=== PATIENT | female | born 1960 ===

== ENCOUNTER 2022-12-24 13:11 | Inpatient (IN) | payer MEDICAID, SELFPAY ==
[2022-12-24] VITALS (12 sets, daily range): BP systolic 105–149; BP diastolic 62–95; PULSE 68–107; RESP 16–28; TEMP 36.6–38.5; O2SAT 86–100; BMI 31.8
--- NOTE | ~2022-12-24 | CT_ITS ---
EXAMINATION: CT HEAD WITHOUT CONTRAST CLINICAL INFORMATION: Somnolent, rule out intracranial abnormality. COMPARISON: None available. TECHNIQUE: Contiguous axial imaging was performed from the skull base to vertex without intravenous administration of contrast. Coronal and sagittal reformatted images were obtained. This CT examination was performed using dose optimization techniques as appropriate, variously including the following: *Automated exposure control *Adjustment of mA and/or kV according to patient size (this includes techniques or standardized protocols for targeted exams where dose is matched to indication/reason for exam; i.e. extremities or head) *Use of iterative reconstruction technique DLP: 679 mGy-cm FINDINGS: There is mild widening of the cortical sulci and associated ventriculomegaly. Minimal periventricular microvascular changes are seen. The lateral ventricles are symmetrical. The third and fourth ventricles are in their normal midline position. The basilar and prepontine cisterns are unremarkable. There is no acute intra or extracerebral abnormality. There is no mass effect or midline shift. Sections through the bony calvarium are unremarkable. The orbits are intact. The paranasal sinuses are clear. The mastoid air cells are clear. There is mild to moderate anterior nasal septal deviation to the right. CT/CT head/brain wo IV con IMPRESSION: No acute intracranial pathology.
--- NOTE | ~2022-12-24 | CT_ITS ---
EXAMINATION: CT ANGIOGRAM OF THE CHEST WITH AND WITHOUT CONTRAST (CT PULMONARY ANGIOGRAM FOR PE) CLINICAL INFORMATION: Reason for Exam hypoxic, r/o PE COMPARISON: Chest radiograph earlier today and chest radiograph 10/25/2010 (report only). TECHNIQUE: Prior to contrast administration, noncontrast localization images were obtained. Subsequently, multidetector volumetric imaging was performed from the thoracic inlet to below the diaphragms following the administration of 65 mL Omnipaque 350 intravenous contrast. No contrast reaction reported Sagittal, coronal, and MIP oblique sagittal reformatted images were obtained on the CT workstation, uploaded to PACS, and reviewed. This CT examination was performed using dose optimization techniques as appropriate, variously including the following: *Automated exposure control *Adjustment of mA and/or kV according to patient size (this includes techniques or standardized protocols for targeted exams where dose is matched to indication/reason for exam; i.e. extremities or head) *Use of iterative reconstruction technique Total exam dose-length product 259 mGy-cm FINDINGS: QUALITY OF STUDY/CONTRAST BOLUS: Suboptimal. There is marked motion artifact present impeding evaluation PULMONARY ARTERIES: No large central or large segmental emboli are seen. There is extremely limited by marked motion artifact. THORACIC AORTA: No aneurysm. LUNG: Bibasilar atelectasis is present. Calcified granulomas seen at the right lung base. PLEURA: No pleural effusion or pneumothorax. MEDIASTINUM: Mild cardiac enlargement.. No pericardial effusion. No hilar or mediastinal lymphadenopathy. No evidence of septal bowing or right heart strain. CORONARY ARTERY CALCIFICATION: None visualized on this study. CHEST WALL/AXILLA: No axillary or internal mammary lymphadenopathy. OSSEOUS STRUCTURES: There is a compression fracture involving the T8 vertebral body with about 50% collapse. There is mild compression involving the superior endplate of T6 vertebral body. UPPER ABDOMEN: Hepatic steatosis is suspected. A water density cyst in the left upper quadrant is partially included which I suspect is related to the upper pole the left kidney. No reflux of contrast into the hepatic veins to suggest elevated right heart pressures. CT/CT angio chest PE protocol IMPRESSION: 1. No evidence of pulmonary emboli, but this study is extremely limited. 2. Compression fractures T6 and T8. VTE: Negative but limited
--- NOTE | ~2022-12-24 | XR_ITS ---
EXAMINATION: XR CHEST CLINICAL INFORMATION: Septic COMPARISON: None TECHNIQUE: Portable AP upright view of the chest was obtained. FINDINGS: EKG leads project over the chest. Lung volumes are low. There is prominence of the interstitial markings. No focal consolidation, interstitial pulmonary edema or pneumothorax. No pleural effusion. No significant abnormality is noted involving the heart, mediastinum, bony thorax or soft tissues. XR/XR chest 1V IMPRESSION: No pneumonia.
--- NOTE | ~2022-12-24 | XR_ITS ---
EXAMINATION: XR CHEST CLINICAL INFORMATION: Hypoxia COMPARISON: Previous day TECHNIQUE: Frontal view of the chest was obtained. FINDINGS: Diffuse bronchial wall thickening redemonstrated. Bibasilar subsegmental atelectasis. No discrete consolidation. Stable cardiomediastinal silhouette. No pleural effusion or pneumothorax. XR/XR chest 1V IMPRESSION: * Stable diffuse bronchial wall thickening. * No discrete consolidation.
[2022-12-24] MEDS: 0.9 % Sodium Chloride 2,000 ML 999 ML IVCONT ×2 (13:20→14:55)
--- NOTE | 2022-12-24 13:29 | ECG_ITS ---
Test Reason : AMS Blood Pressure : / mmHG Vent. Rate : 089 BPM Atrial Rate : 089 BPM P-R Int : 152 ms QRS Dur : 096 ms QT Int : 358 ms P-R-T Axes : 042 011 200 degrees QTc Int : 435 ms Normal sinus rhythm ST & T wave abnormality, consider inferior ischemia ST & T wave abnormality, consider anterolateral ischemia Abnormal ECG No previous ECGs available Referred By: Krissy Sousa Electronically Signed By:STEVIE SO MD
[2022-12-24 13:50] LABS: MANUAL DIFF FLAG NO
[2022-12-24 13:51] LABS: Basophils Percent Auto 0.5 % (0-2); Eosinophils Percent Auto 0.6 % (0-4); Hematocrit 54.2 % (37.0-47.0); Hemoglobin 16.7 g/dl (12.0-16.0); Imm Gran Abs Auto 0.03 X10*3/uL (0.00-0.03); Imm Gran Pct Auto 0.5 % (0.0-0.4); Lymphocytes Absolute Auto 2.3 X10*3/uL (1.2-4.9); Mean Corpuscular HGB Conc 30.8 g/dl (31.0-35.0); Mean Corpuscular Hemoglobin 28.9 pg (27.0-33.0); Mean Corpuscular Volume 93.8 fL (80.0-98.0); Mean Platelet Volume 10.2 fL (9.4-12.3); Monocytes Absolute Auto 0.8 X10*3/uL (0.1-1.2); Monocytes Percent Auto 11.8 % (2-11); Neutrophils Absolute Auto 3.2 x10*3/uL (2.0-8.3); Neutrophils Percent Auto 50.6 % (45-73); Platelet Count 298 X10*3/uL (160-400); Red Blood Count 5.78 X10*6/uL (4.20-5.50); Red Cell Distribution Width 13.9 % (11.0-16.0); White Blood Count 6.4 X10*3/uL (4.8-10.8)
[2022-12-24 13:53] LABS: Venous Blood Gas Refer to POC result
[2022-12-24 13:53] LABS: VBG Base Excess 6.8 mmol/L; VBG HCO3 29 mmol/L (22-26); VBG pCO2 34 mmHg; VBG pH 7.53 (7.32-7.43); VBG pO2 61 mmHg
[2022-12-24 14:00] LABS: Lactic Acid 1.5 mmol/L (0.5-2.0)
[2022-12-24 14:07] LABS: Alanine Aminotransferase 20 U/L (0-31); Albumin Level 3.9 g/dL (3.5-5.0); Alkaline Phosphatase 121 U/L (39-117); Anion Gap 17 (12-20); Aspartate Amino Transferase 27 U/L (5-31); Bilirubin Direct 0.1 mg/dL (0.0-0.5); Bilirubin Total 0.3 mg/dL (0.0-1.0); Blood Urea Nitrogen 35 mg/dL (9-16); Calcium 9.6 mg/dL (8.4-10.2); Carbon Dioxide 24 mmol/L (22-29); Chloride 115 mmol/L (96-108); Creatinine Clr Calc Pharmacy 72.7; Estimated Glomerular Filt Rate > 60; Glucose Random 124 mg/dL (60-115); Magnesium 2.6 mg/dL (1.6-2.6); Potassium 3.6 mmol/L (3.3-5.1); Sodium 152 mmol/L (135-145); Total Protein 7.3 g/dL (6.5-8.0)
[2022-12-24] MEDS: levoFLOXacin/D5W 500 MG/100 ML PIGGYBACK 100 MG IV (14:11)
--- NOTE | 2022-12-24 14:17 | PHA.MEDREC ---
Pharmacy Consult ? Medication Reconciliation Pharmacy has completed the medication reconciliation. List from [facility]
[2022-12-24 14:27] LABS: INTERNATIONAL NORM RATIO 1.7 (0.9-1.1); Prothrombin Time 20.1 SEC (10.0-13.1)
[2022-12-24 14:31] LABS: COVID-19 Test Negative (Negative); IDNOW Serial# 08D9AD1C
[2022-12-24 14:37] LABS: B Type Natriuretic Peptide 24 pg/mL (<100)
[2022-12-24 14:39] LABS: Troponin-I High Sensitivity < 2.7 ng/L (<3.5-17.0)
[2022-12-24] MEDS: Acetaminophen Supp 650 MG SUPP.RECT PR (14:53)
[2022-12-24 14:54] LABS: TSH reflex Free T4 1.12 uIU/mL (0.32-4.0)
--- NOTE | 2022-12-24 14:55 | ED_ITS ---
HPI - Recheck/Abnormal Lab/Rx General Chief Complaint: Recheck/Abnormal Lab/Rx Stated Complaint: ABNORMAL LABS PER EMS Time Seen by Provider: 12/24/22 13:22 Source: EMS Mode of arrival: EMS Limitations: altered mental status History of Present Illness HPI narrative: Patient comes in the emergency room via ambulance from [facility]. They reported that the patient had low sodium, low potassium, has been weaker than usual. Per EMS, they were told by the staff the patient at baseline is not all that responsive . When EMS arrived to the facility, patient's oxygen saturation was 86%. Patient is unable to provide any history Related Data Home Medications Medication Instructions Recorded Confirmed cholecalciferol (vitamin D3) 1,250 1,250 mcg PO QMONTH 12/24/22 12/24/22 mcg (50,000 unit) tablet divalproex 500 mg tablet,extended 1,500 mg PO BEDTIME 12/24/22 12/24/22 release 24 hr (Depakote ER) divalproex 500 mg tablet,extended 500 mg PO BID@0900,1400 12/24/22 12/24/22 release 24 hr (Depakote ER) famotidine 20 mg tablet 20 mg PO BID 12/24/22 12/24/22 gemfibrozil 600 mg tablet 600 mg PO BID 12/24/22 12/24/22 levothyroxine 75 mcg tablet 75 mcg PO DAILY 12/24/22 12/24/22 lorazepam 0.5 mg tablet 0.5 mg PO BID 12/24/22 12/24/22 olanzapine 15 mg tablet 15 mg PO BEDTIME 12/24/22 12/24/22 olanzapine 5 mg tablet 5 mg PO DAILY 12/24/22 12/24/22 potassium chloride 20 mEq 20 meq PO DAILY 12/24/22 12/24/22 tablet,extended release ramelteon 8 mg tablet 8 mg PO BEDTIME 12/24/22 12/24/22 simvastatin 40 mg tablet 40 mg PO BEDTIME 12/24/22 12/24/22 white petrolatum-mineral oil 83 1 appl ophthalmic (eye) BID 12/24/22 12/24/22 %-15 % eye ointment (Artificial Eye Lubricant) Allergies Allergy/AdvReac Type Severity Reaction Status Date / Time Penicillins [PENICILLINS] Allergy Intermediate RASH/VOMITI Verified 12/24/22 13:32 NG clindamycin [CLINDAMYCIN] Allergy Mild VOMIT Verified 12/24/22 13:32 aspirin [ASPIRIN] Allergy Unknown SENSITIVE Verified 12/24/22 13:32 STOMACH ibuprofen [IBUPROFEN] Allergy Unknown VOMITING Verified 12/24/22 13:32 Sulfa (Sulfonamide Allergy Unknown UNKNOWN Verified 12/24/22 13:32 Antibiotics) [SULFA (SULFONAMIDE ANTIBIOTICS)] sulfamethoxazole Allergy Unknown NAUSEA & Unverified 03/30/20 17:29 [From BACTRIM] VOMITING trimethoprim [From BACTRIM] Allergy Unknown NAUSEA & Unverified 03/30/20 17:29 VOMITING carisoprodol [From SOMA] AdvReac Unknown NAUSEA & Unverified 03/30/20 17:29 VOMITING erythromycin base AdvReac Unknown NAUSEA & Unverified 03/30/20 17:29 [ERYTHROMYCIN BASE] VOMITING morphine [MORPHINE] AdvReac Unknown CHEST PAIN Unverified 03/30/20 17:29 AND CRAMPS From DEMEROL Allergy Unknown NAUSEA/VOMI Uncoded 03/30/20 17:29 TING From PERCOCET Allergy Unknown VOMITTING Uncoded 03/30/20 17:29 Review of Systems Review of Systems: Yes Unobtainable due to mental condition [facility] Past Medical History Medical History (Updated 12/24/22 @ 21:13 by Krissy Sousa MD) Bipolar disorder Chronic anemia Delusional disorder GERD (gastroesophageal reflux disease) Hyperlipidemia Hypertension Hypothyroidism Social History Social History Alcohol intake: unknown Smoked in Last 30 Days: No Use of substances other than those prescribed or required for medical reasons: Unknown Advance Directives: No Patient : No Physical Exam Vital Signs: Vital Signs: Last Vital Signs Temp 98.2 F 12/24/22 19:54 Pulse 68 12/24/22 19:54 Resp 16 12/24/22 19:54 BP 110/68 12/24/22 19:54 Pulse Ox 95 12/24/22 19:54 O2 Del Method High Flow Nasal C annula 12/24/22 19:54 O2 Flow Rate 4 12/24/22 19:54 BMI result Body Mass Index 31.8 Const: Other: Appearance: Somnolent, easily arousable, falls back asleep Eyes: Pupils equal, round and reactive to light. ENT: Pharynx normal. Dry mucous membranes Neck: Normal inspection. Neck supple. No lymph nodes noted. No crepitus CVS: Normal heart rate and rhythm. Pulses normal. Normal S1 and S2 Respiratory: No respiratory distress. Breath sounds normal. No Wheezing. No rales oxygen saturation 88% on room air Abdomen: Soft and nontender. No rigidity. No distention. Skin: Skin warm and dry. Normal skin color. Normal skin turgor. Extremities: No lower extremity edema. No Lacerations. No Rash Neuro: Lethargic, cannot participate in cranial nerve assessment Psych: Lethargic Medications Administered Discontinued Medications Generic Name Dose Route Start Last Admin Trade Name Freq PRN Reason Stop Dose Admin Acetaminophen 650 mg 12/24/22 14:43 12/24/22 14:53 Acetaminophen Supp 650 Mg Supp.Rect HI 12/24/22 14:44 650 mg ONCE ONE Administration Sodium Chloride 2,000 mls @ 999 mls/hr 12/24/22 13:29 12/24/22 15:16 Ns IVCONT 12/24/22 15:29 Infused .Q2H1M ONE Infusion Sodium Chloride 2,000 mls @ 999 mls/hr 12/24/22 13:30 12/24/22 16:10 Ns IVCONT 12/24/22 15:30 Infused .Q2H1M ONE Infusion Levofloxacin 500 mg in 100 mls @ 100 mls/hr 12/24/22 13:46 12/24/22 15:17 Levaquin IV 12/24/22 14:45 Infused ONCE ONE Infusion Iohexol 65 ml 12/24/22 17:13 12/24/22 17:13 Iohexol 350 Mg/Ml 100 Ml Infus..Btl IV 12/24/22 17:14 65 ml ONCE ONE Administration Iohexol 100 ml 12/24/22 17:16 12/24/22 17:17 Iohexol 350 Mg/Ml 100 Ml Infus..Btl IV 12/24/22 17:17 65 ml ONCE ONE Administration Medical Decision Making Medical Decision Making [facility] Narrative: -on arrival, patient was noted to be altered, tachypneic, oxygen saturation 88% on room air, fever. Patient was given 2 L of normal saline, based on ideal body weight of 55 kg, patient is obese. Patient was also started on Levaquin. Patient has an extensive list of allergies -all of patient's labs and imaging pending -chest x-ray does not show acute pneumonia and white blood cell count is within normal limits. Patient is hypoxic, we will go ahead and order a CT scan to rule out pulmonary embolism. -CT scan for pulmonary embolism is negative. -patient being treated for UTI -discussed the patient with Dr. Watkins, patient being admitted Admission/Observation Consideration of admission/observation: Escalation of care including admission/observation considered Consult Healthcare Provider Management of the patient was discussed with: Hospitalist Lab Data [facility] Lab Attestation statement: I reviewed the patient's lab results. 12/24/22 13:44 12/24/22 13:44 Labs: Lab Results 12/24/22 12/24/22 12/24/22 Range/Units 13:43 13:44 13:44 WBC 6.4 (4.8-10.8) X10*3/uL RBC 5.78 H (4.20-5.50) X10*6/uL Hgb 16.7 H (12.0-16.0) g/dl Hct 54.2 H (37.0-47.0) % MCV 93.8 (80.0-98.0) fL MCH 28.9 (27.0-33.0) pg MCHC 30.8 L (31.0-35.0) g/dl RDW 13.9 (11.0-16.0) % Plt Count 298 (160-400) X10*3/uL MPV 10.2 (9.4-12.3) fL Immature Gran % (Auto) 0.5 H (0.0-0.4) % Neut % (Auto) 50.6 (45-73) % Lymph % (Auto) 36.0 (20-40) % [place] % (Auto) 11.8 H (2-11) % Eos % (Auto) 0.6 (0-4) % Baso % (Auto) 0.5 (0-2) % Lymph # (Auto) 2.3 (1.2-4.9) X10*3/uL [place] # (Auto) 0.8 (0.1-1.2) X10*3/uL Eos # (Auto) 0.0 (0.0-0.4) X10*3/uL Baso # (Auto) 0.0 (0.0-0.2) X10*3/uL Abs Immat Gran (auto) 0.03 (0.00-0.03) X10*3/uL Absolute Neuts (auto) 3.2 (2.0-8.3) x10*3/uL Absolute Nucleated RBC 0.000 (0.0-0.012) X10*3/uL Nucleated RBC % (auto) 0.0 (0.0-0.2) /100WBC PT (10.0-13.1) SEC INR (0.9-1.1) VBG pH (7.32-7.43) VBG pCO2 mmHg VBG pO2 mmHg VBG HCO3 (22-26) mmol/L VBG O2 Saturation % VBG Base Excess mmol/L Sodium 152 H (135-145) mmol/L Potassium 3.6 (3.3-5.1) mmol/L Chloride 115 H (96-108) mmol/L Carbon Dioxide 24 (22-29) mmol/L Anion Gap 17 (12-20) BUN 35 H (9-16) mg/dL Creatinine 0.85 (0.5-1.4) mg/dL Estim Creat Clear Calc 72.7 Estimated GFR > 60 Random Glucose 124 H (60-115) mg/dL Lactic Acid 1.5 (0.5-2.0) mmol/L Calcium 9.6 (8.4-10.2) mg/dL Magnesium 2.6 (1.6-2.6) mg/dL Total Bilirubin 0.3 (0.0-1.0) mg/dL Direct Bilirubin 0.1 (0.0-0.5) mg/dL AST 27 (5-31) U/L ALT 20 (0-31) U/L Alkaline Phosphatase 121 H (39-117) U/L Troponin I High Sens (<3.5-17.0) ng/L B-Natriuretic Peptide (<100) pg/mL Total Protein 7.3 (6.5-8.0) g/dL Albumin 3.9 (3.5-5.0) g/dL TSH (0.32-4.0) uIU/mL Urine Color Urine Appearance Urine pH (5.0-9.0) Ur Specific [place] (1.005-1.025) Urine Protein (Neg-Trace) mg/dL Urine Glucose (UA) (Negative) mg/dL Urine Ketones (Negative) mg/dL Urine Blood (Negative) Urine Nitrite (Negative) Ur Leukocyte Esterase (Negative) Urine RBC (0-2) /HPF Urine WBC (0-5) /HPF Ur Squamous Epith Cells (0-2) /HPF Urine Bacteria (None Seen) Hyaline Casts (0-2) /LPF COVID-19 (JULIA) (Negative) COVID-19 Clin Com 12/24/22 12/24/22 12/24/22 Range/Units 13:46 14:08 14:08 WBC (4.8-10.8) X10*3/uL RBC (4.20-5.50) X10*6/uL Hgb (12.0-16.0) g/dl Hct (37.0-47.0) % MCV (80.0-98.0) fL MCH (27.0-33.0) pg MCHC (31.0-35.0) g/dl RDW (11.0-16.0) % Plt Count (160-400) X10*3/uL MPV (9.4-12.3) fL Immature Gran % (Auto) (0.0-0.4) % Neut % (Auto) (45-73) % Lymph % (Auto) (20-40) % [place] % (Auto) (2-11) % Eos % (Auto) (0-4) % Baso % (Auto) (0-2) % Lymph # (Auto) (1.2-4.9) X10*3/uL [place] # (Auto) (0.1-1.2) X10*3/uL Eos # (Auto) (0.0-0.4) X10*3/uL Baso # (Auto) (0.0-0.2) X10*3/uL Abs Immat Gran (auto) (0.00-0.03) X10*3/uL Absolute Neuts (auto) (2.0-8.3) x10*3/uL Absolute Nucleated RBC (0.0-0.012) X10*3/uL Nucleated RBC % (auto) (0.0-0.2) /100WBC PT (10.0-13.1) SEC INR (0.9-1.1) VBG pH 7.53 H (7.32-7.43) VBG pCO2 34 mmHg VBG pO2 61 mmHg VBG HCO3 29 H (22-26) mmol/L VBG O2 Saturation 92.0 % VBG Base Excess 6.8 mmol/L Sodium (135-145) mmol/L Potassium (3.3-5.1) mmol/L Chloride (96-108) mmol/L Carbon Dioxide (22-29) mmol/L Anion Gap (12-20) BUN (9-16) mg/dL Creatinine (0.5-1.4) mg/dL Estim Creat Clear Calc Estimated GFR Random Glucose (60-115) mg/dL Lactic Acid (0.5-2.0) mmol/L Calcium (8.4-10.2) mg/dL Magnesium (1.6-2.6) mg/dL Total Bilirubin (0.0-1.0) mg/dL Direct Bilirubin (0.0-0.5) mg/dL AST (5-31) U/L ALT (0-31) U/L Alkaline Phosphatase (39-117) U/L Troponin I High Sens < 2.7 (<3.5-17.0) ng/L B-Natriuretic Peptide (<100) pg/mL Total Protein (6.5-8.0) g/dL Albumin (3.5-5.0) g/dL TSH (0.32-4.0) uIU/mL Urine Color Urine Appearance Urine pH (5.0-9.0) Ur Specific [place] (1.005-1.025) Urine Protein (Neg-Trace) mg/dL Urine Glucose (UA) (Negative) mg/dL Urine Ketones (Negative) mg/dL Urine Blood (Negative) Urine Nitrite (Negative) Ur Leukocyte Esterase (Negative) Urine RBC (0-2) /HPF Urine WBC (0-5) /HPF Ur Squamous Epith Cells (0-2) /HPF Urine Bacteria (None Seen) Hyaline Casts (0-2) /LPF COVID-19 (JULIA) Negative (Negative) COVID-19 Clin Com See Note 12/24/22 12/24/22 12/24/22 Range/Units 14:08 14:08 14:08 WBC (4.8-10.8) X10*3/uL RBC (4.20-5.50) X10*6/uL Hgb (12.0-16.0) g/dl Hct (37.0-47.0) % MCV (80.0-98.0) fL MCH (27.0-33.0) pg MCHC (31.0-35.0) g/dl RDW (11.0-16.0) % Plt Count (160-400) X10*3/uL MPV (9.4-12.3) fL Immature Gran % (Auto) (0.0-0.4) % Neut % (Auto) (45-73) % Lymph % (Auto) (20-40) % [place] % (Auto) (2-11) % Eos % (Auto) (0-4) % Baso % (Auto) (0-2) % Lymph # (Auto) (1.2-4.9) X10*3/uL [place] # (Auto) (0.1-1.2) X10*3/uL Eos # (Auto) (0.0-0.4) X10*3/uL Baso # (Auto) (0.0-0.2) X10*3/uL Abs Immat Gran (auto) (0.00-0.03) X10*3/uL Absolute Neuts (auto) (2.0-8.3) x10*3/uL Absolute Nucleated RBC (0.0-0.012) X10*3/uL Nucleated RBC % (auto) (0.0-0.2) /100WBC PT 20.1 H (10.0-13.1) SEC INR 1.7 H (0.9-1.1) VBG pH (7.32-7.43) VBG pCO2 mmHg VBG pO2 mmHg VBG HCO3 (22-26) mmol/L VBG O2 Saturation % VBG Base Excess mmol/L Sodium (135-145) mmol/L Potassium (3.3-5.1) mmol/L Chloride (96-108) mmol/L Carbon Dioxide (22-29) mmol/L Anion Gap (12-20) BUN (9-16) mg/dL Creatinine (0.5-1.4) mg/dL Estim Creat Clear Calc Estimated GFR Random Glucose (60-115) mg/dL Lactic Acid (0.5-2.0) mmol/L Calcium (8.4-10.2) mg/dL Magnesium (1.6-2.6) mg/dL Total Bilirubin (0.0-1.0) mg/dL Direct Bilirubin (0.0-0.5) mg/dL AST (5-31) U/L ALT (0-31) U/L Alkaline Phosphatase (39-117) U/L Troponin I High Sens (<3.5-17.0) ng/L B-Natriuretic Peptide 24 (<100) pg/mL Total Protein (6.5-8.0) g/dL Albumin (3.5-5.0) g/dL TSH 1.12 (0.32-4.0) uIU/mL Urine Color Urine Appearance Urine pH (5.0-9.0) Ur Specific [place] (1.005-1.025) Urine Protein (Neg-Trace) mg/dL Urine Glucose (UA) (Negative) mg/dL Urine Ketones (Negative) mg/dL Urine Blood (Negative) Urine Nitrite (Negative) Ur Leukocyte Esterase (Negative) Urine RBC (0-2) /HPF Urine WBC (0-5) /HPF Ur Squamous Epith Cells (0-2) /HPF Urine Bacteria (None Seen) Hyaline Casts (0-2) /LPF COVID-19 (JULIA) (Negative) COVID-19 Clin Com 12/24/22 Range/Units 14:51 WBC (4.8-10.8) X10*3/uL RBC (4.20-5.50) X10*6/uL Hgb (12.0-16.0) g/dl Hct (37.0-47.0) % MCV (80.0-98.0) fL MCH (27.0-33.0) pg MCHC (31.0-35.0) g/dl RDW (11.0-16.0) % Plt Count (160-400) X10*3/uL MPV (9.4-12.3) fL Immature Gran % (Auto) (0.0-0.4) % Neut % (Auto) (45-73) % Lymph % (Auto) (20-40) % [place] % (Auto) (2-11) % Eos % (Auto) (0-4) % Baso % (Auto) (0-2) % Lymph # (Auto) (1.2-4.9) X10*3/uL [place] # (Auto) (0.1-1.2) X10*3/uL Eos # (Auto) (0.0-0.4) X10*3/uL Baso # (Auto) (0.0-0.2) X10*3/uL Abs Immat Gran (auto) (0.00-0.03) X10*3/uL Absolute Neuts (auto) (2.0-8.3) x10*3/uL Absolute Nucleated RBC (0.0-0.012) X10*3/uL Nucleated RBC % (auto) (0.0-0.2) /100WBC PT (10.0-13.1) SEC INR (0.9-1.1) VBG pH (7.32-7.43) VBG pCO2 mmHg VBG pO2 mmHg VBG HCO3 (22-26) mmol/L VBG O2 Saturation % VBG Base Excess mmol/L Sodium (135-145) mmol/L Potassium (3.3-5.1) mmol/L Chloride (96-108) mmol/L Carbon Dioxide (22-29) mmol/L Anion Gap (12-20) BUN (9-16) mg/dL Creatinine (0.5-1.4) mg/dL Estim Creat Clear Calc Estimated GFR Random Glucose (60-115) mg/dL Lactic Acid (0.5-2.0) mmol/L Calcium (8.4-10.2) mg/dL Magnesium (1.6-2.6) mg/dL Total Bilirubin (0.0-1.0) mg/dL Direct Bilirubin (0.0-0.5) mg/dL AST (5-31) U/L ALT (0-31) U/L Alkaline Phosphatase (39-117) U/L Troponin I High Sens (<3.5-17.0) ng/L B-Natriuretic Peptide (<100) pg/mL Total Protein (6.5-8.0) g/dL Albumin (3.5-5.0) g/dL TSH (0.32-4.0) uIU/mL Urine Color Yellow Urine Appearance Clear Urine pH 5.5 (5.0-9.0) Ur Specific [place] 1.025 (1.005-1.025) Urine Protein 100 (2+) H (Neg-Trace) mg/dL Urine Glucose (UA) Negative (Negative) mg/dL Urine Ketones Trace (Negative) mg/dL Urine Blood Moderate (2+) H (Negative) Urine Nitrite Negative (Negative) Ur Leukocyte Esterase Moderate (2+) H (Negative) Urine RBC >20 H (0-2) /HPF Urine WBC >50 H (0-5) /HPF Ur Squamous Epith Cells >20 (0-2) /HPF Urine Bacteria Trace (None Seen) Hyaline Casts 3-5 (0-2) /LPF COVID-19 (JULIA) (Negative) COVID-19 Clin Com Independent Interpretation I performed an independent interpretation of an: CT Scan Radiology Impression Radiologist Impression: QUALITY OF STUDY/CONTRAST BOLUS: Suboptimal. There is marked motion artifact present impeding evaluation PULMONARY ARTERIES: No large central or large segmental emboli are seen. There is extremely limited by marked motion artifact.? THORACIC AORTA: No aneurysm. LUNG: Bibasilar atelectasis is present. Calcified granulomas seen at the right lung base. PLEURA: No pleural effusion or pneumothorax. MEDIASTINUM: Mild cardiac enlargement..? No pericardial effusion.? No hilar or mediastinal lymphadenopathy.? No evidence of septal bowing or right heart strain. CORONARY ARTERY CALCIFICATION: None visualized on this study. CHEST WALL/AXILLA: No axillary or internal mammary lymphadenopathy. OSSEOUS STRUCTURES: There is a compression fracture involving the T8 vertebral body with about 50% collapse. There is mild compression involving the superior endplate of T6 vertebral body. UPPER ABDOMEN: Hepatic steatosis is suspected. A water density cyst in the left upper quadrant is partially included which I suspect is related to the upper pole the left kidney.? No reflux of contrast into the hepatic veins to suggest elevated right heart pressures. CT/CT angio chest PE protocol IMPRESSION: 1.? No evidence of pulmonary emboli, but this study is extremely limited. 2.? Compression fractures T6 and T8. ? VTE: Negative but limited Critical Care Time Critical Care Time Critical Care Time: Yes Total Critical Care Time: 60 Attestation: I have personally provided critical care time. Time includes review of lab data, radiology results, discussion with consultants, and monitoring for potential decompensation. Intervention performed as documented. Discharge Plan Discharge Clinical Impression: UTI (urinary tract infection), Weakness Patient Disposition: Admitted As Inpatient Prescriptions: No Action olanzapine 5 mg Tablet 5 mg PO DAILY simvastatin 40 mg Tablet 40 mg PO BEDTIME levothyroxine 75 mcg Tablet 75 mcg PO DAILY famotidine 20 mg Tablet 20 mg PO BID lorazepam 0.5 mg Tablet 0.5 mg PO BID gemfibrozil 600 mg Tablet 600 mg PO BID divalproex [Depakote ER] 500 mg Tablet Extended Release 24 Hr 1,500 mg PO BEDTIME divalproex [Depakote ER] 500 mg Tablet Extended Release 24 Hr 500 mg PO BID@0900,1400 olanzapine 15 mg Tablet 15 mg PO BEDTIME ramelteon 8 mg Tablet 8 mg PO BEDTIME Artificial Eye Lubricant 83-15 % Ointment 1 appl OPHTHALMIC (EYE) BID cholecalciferol (vitamin D3) 1,250 mcg (50,000 unit) Tablet 1,250 mcg PO QMONTH Rx Instructions: each 5th day of the month potassium chloride 20 mEq Tablet Extended Release 20 meq PO DAILY Rx Instructions: give with food and 120 cc of fluid of choice
[2022-12-24 15:06] LABS: Appearance Urine Clear; Color Urine Yellow; Glucose Urine UA Negative (Negative); Leukocyte Esterase Urine Moderate (2+) (Negative); Nitrite Urine Negative (Negative); PH 5.5 (5.0-9.0); Specific Gravity - Urine 1.025 (1.005-1.025); UMIC TRIGGER UACC YES; Urine Blood Moderate (2+) (Negative); Urine Ketones Trace mg/dL (Negative); Urine Protein 100 (2+) mg/dL (Neg-Trace)
[2022-12-24 15:14] LABS: Bacteria Urine Trace (None Seen); RBC Urine >20 /HPF (0-2); Squamous Epithelial Cell Urine >20 /HPF (0-2); UACC Culture Trigger YES; WBC Urine >50 /HPF (0-5)
[2022-12-24] MEDS: iohexoL 350 MG/ML 100 ML INFUS..BTL 65 ML IV (17:13)
[2022-12-24] MEDS: iohexoL 350 MG/ML 100 ML INFUS..BTL IV (17:17)
--- NOTE | 2022-12-24 19:51 | PC.NURSE ---
assumed care of pt at 1900 - pt resting comfortably on stretcher. provided with small sips of water per pt request. pt denying any pain, has no current complaints. on monitoring analyst, wearing 4L O2 via oxymask as pt is mouth breather. waiting for ED provider - will CTM.
--- NOTE | 2022-12-24 20:18 | P.HPHOSP_ITS ---
patient seen and examined at bedside, somnolent, arousable to verbal command, falls right back asleep. Patient sent to the hospital with worsening altered mental status found to have urosepsis likely source being UTI. Will treat with IV antibiotics, follow mentation History of Present Illness Date of Service: 12/24/22 Attending physician on admission: Donal Watkins Chief Complaint: ams 62-year-old female with history of bipolar disorder, delusional disorder, GERD, hyperlipidemia, hypertension, hypothyroidism, osteoporosis presents to the ED via EMS from [facility] where she resides for evaluation of altered mental status. The patient is altered at baseline but staff state that she was more somnolent and altered than usual. On arrival, EMS noted patient to be hypoxic to 86% placed on 4 L supplemental O2 now maintaining oximetry 95% on 4 L via OxyMask. Initially was febrile to 101.3 and has been intermittently tachypneic while sleeping. There is no leukocytosis. H/H is 16.7/50 4.2%. Creatinine 0.85, BUN 35, sodium 152, potassium 3.6, chloride 115, CO2 24. Lactic acid 1.5. Troponin undetectable. BNP 24. TSH 1.12. VBG 7.53, pCO2 34, bicarb 29. Urinalysis with 2+ leukocytes, negative nitrites, 2+ blood, 2+ protein, positive urinary sediment, trace bacteria. CXR negative for any pneumonia. CTA of the chest is negative for PE though study is extremely limited and there were noted compression fractures at T6 and T8. In the ED, received 2L IV NS, 500mg IV levaquin, and 650mg acetaminophen. History obtained from pt chart and ED provided as patient was somnolent during exam. Review of Systems Review of Systems: Yes Unobtainable due to mental condition and Unobtainable due to mental status [facility] Medical History (Updated 12/24/22 @ 20:29 by MARTÍN Campos) Bipolar disorder Chronic anemia Delusional disorder GERD (gastroesophageal reflux disease) Hyperlipidemia Hypertension Hypothyroidism Social History Alcohol intake: unknown Smoked in Last 30 Days: No Use of substances other than those prescribed or required for medical reasons: Unknown Advance Directives: No Patient : No Meds Allergies Allergy/AdvReac Type Severity Reaction Status Date / Time Penicillins [PENICILLINS] Allergy Intermediate RASH/VOMITI Verified 12/24/22 13:32 NG clindamycin [CLINDAMYCIN] Allergy Mild VOMIT Verified 12/24/22 13:32 aspirin [ASPIRIN] Allergy Unknown SENSITIVE Verified 12/24/22 13:32 STOMACH ibuprofen [IBUPROFEN] Allergy Unknown VOMITING Verified 12/24/22 13:32 Sulfa (Sulfonamide Allergy Unknown UNKNOWN Verified 12/24/22 13:32 Antibiotics) [SULFA (SULFONAMIDE ANTIBIOTICS)] sulfamethoxazole Allergy Unknown NAUSEA & Unverified 03/30/20 17:29 [From BACTRIM] VOMITING trimethoprim [From BACTRIM] Allergy Unknown NAUSEA & Unverified 03/30/20 17:29 VOMITING carisoprodol [From SOMA] AdvReac Unknown NAUSEA & Unverified 03/30/20 17:29 VOMITING erythromycin base AdvReac Unknown NAUSEA & Unverified 03/30/20 17:29 [ERYTHROMYCIN BASE] VOMITING morphine [MORPHINE] AdvReac Unknown CHEST PAIN Unverified 03/30/20 17:29 AND CRAMPS From DEMEROL Allergy Unknown NAUSEA/VOMI Uncoded 03/30/20 17:29 TING From PERCOCET Allergy Unknown VOMITTING Uncoded 03/30/20 17:29 Active Medications: Current Medications Acetaminophen (Acetaminophen Supp 650 Mg Supp.Rect) 650 mg MS Q6H PRN PRN Reason: Pain, Mild, fever Divalproex Sodium (Divalproex Sodium Er 500 Mg Tab.Er.24h) 500 mg PO BID@0900,1400 [facility] Divalproex Sodium (Divalproex Sodium Er 500 Mg Tab.Er.24h) 1,500 mg PO BEDTIME [facility] Docusate Sodium (Docusate Sodium 100 Mg Capsule) 100 mg PO DAILY PRN PRN Reason: Constipation Enoxaparin Sodium (Enoxaparin Sodium 40 Mg/0.4 Ml Syringe) 40 mg SUBCUT Q24H [facility] Famotidine (Famotidine 20 Mg Tablet) 20 mg PO BID [facility] Gemfibrozil (Gemfibrozil 600 Mg Tablet) 600 mg PO BID [facility] Levothyroxine Sodium (Levothyroxine Sodium 75 Mcg Tablet) 75 mcg PO DAILY [facility] Lorazepam (Lorazepam 0.5 Mg Tablet) 0.5 mg PO BID [facility] Multi-Ingred Cream/Lotion/Oil/Oint (Artificial Tears Ophth Oint 3.5 Gm Tube) 1 appl EYE-BOTH BID SEVERO; Protocol Non-Formulary Medication (Cholecalciferol (Vitamin D3)) 1,250 mcg PO QMONTH [facility] Non-Formulary Medication (Ramelteon) 8 mg PO BEDTIME [facility] Non-Formulary Medication (Simvastatin) 40 mg PO BEDTIME [facility] Olanzapine (Olanzapine 5 Mg Tablet) 5 mg PO DAILY [facility] Olanzapine (Olanzapine 7.5 Mg Tablet) 15 mg PO BEDTIME [facility] Ondansetron HCl (Ondansetron Hcl 4 Mg/2 Ml Vial) 4 mg IVPUSH Q8H PRN PRN Reason: Nausea and Vomiting Pharmacy Consult (Consult Rx Perform Med Rec) 1 each MISCELLANE ONCE PRN PRN Reason: Consult order Potassium Chloride (Potassium Chloride Er 20 Meq Tab.Er.Prt) 20 meq PO DAILY [facility] Home Medications Medication Instructions Recorded Confirmed Last Taken Type cholecalciferol (vitamin D3) 1,250 1,250 mcg PO QMONTH 12/24/22 12/24/22 12/24/22 History mcg (50,000 unit) tablet divalproex 500 mg tablet,extended 1,500 mg PO BEDTIME 12/24/22 12/24/22 12/24/22 History release 24 hr (Depakote ER) divalproex 500 mg tablet,extended 500 mg PO BID@0900,1400 12/24/22 12/24/22 12/24/22 History release 24 hr (Depakote ER) famotidine 20 mg tablet 20 mg PO BID 12/24/22 12/24/22 12/24/22 History gemfibrozil 600 mg tablet 600 mg PO BID 12/24/22 12/24/22 12/24/22 History levothyroxine 75 mcg tablet 75 mcg PO DAILY 12/24/22 12/24/22 12/24/22 History lorazepam 0.5 mg tablet 0.5 mg PO BID 12/24/22 12/24/22 12/24/22 History olanzapine 15 mg tablet 15 mg PO BEDTIME 12/24/22 12/24/22 12/24/22 History olanzapine 5 mg tablet 5 mg PO DAILY 12/24/22 12/24/22 12/24/22 History potassium chloride 20 mEq 20 meq PO DAILY 12/24/22 12/24/22 12/24/22 History tablet,extended release ramelteon 8 mg tablet 8 mg PO BEDTIME 12/24/22 12/24/22 12/24/22 History simvastatin 40 mg tablet 40 mg PO BEDTIME 12/24/22 12/24/22 12/24/22 History white petrolatum-mineral oil 83 1 appl ophthalmic (eye) BID 12/24/22 12/24/22 12/24/22 History %-15 % eye ointment (Artificial Eye Lubricant) Physical Exam Vital Signs and Narrative: Vital Signs: Last Vital Signs Temp 98.2 F 12/24/22 19:54 Pulse 68 12/24/22 19:54 Resp 16 12/24/22 19:54 BP 110/68 12/24/22 19:54 Pulse Ox 95 12/24/22 19:54 O2 Del Method High Flow Nasal C annula 12/24/22 19:54 O2 Flow Rate 4 12/24/22 19:54 BMI result Body Mass Index 31.8 Constitutional - somnolent but arousable, No apparent distress Eyes - PERRLA, EOMI Cardiovascular - S1S2, RRR, No edema Respiratory - Normal lung expansion, Normal respiratory effort, No respiratory distress, CTA bilaterally Gastrointestinal - Central obesity. NT / ND; +BS; No rebound or guarding - No CVA tenderness Extremities - no calf tenderness bilaterally, no swelling Musculoskeletal - Normal inspection, normal ROM Skin - Warm/Dry Neurological - somnolent but arousable Psychological - Appropriate affect Results Labs 12/24/22 13:44 12/24/22 13:44 Labs: Laboratory Results - last 24 hr 12/24/22 12/24/22 12/24/22 13:43 13:44 13:44 MCV 93.8 MCH 28.9 MCHC 30.8 L RDW 13.9 Plt Count 298 MPV 10.2 Immature Gran % (Auto) 0.5 H Neut % (Auto) 50.6 Lymph % (Auto) 36.0 Maries % (Auto) 11.8 H Eos % (Auto) 0.6 Baso % (Auto) 0.5 Lymph # (Auto) 2.3 Maries # (Auto) 0.8 Eos # (Auto) 0.0 Baso # (Auto) 0.0 Abs Immat Gran (auto) 0.03 Absolute Neuts (auto) 3.2 Absolute Nucleated RBC 0.000 Nucleated RBC % (auto) 0.0 PT INR VBG pH VBG pCO2 VBG pO2 VBG HCO3 VBG O2 Saturation VBG Base Excess Anion Gap 17 Estim Creat Clear Calc 72.7 Estimated GFR > 60 Random Glucose 124 H Lactic Acid 1.5 Calcium 9.6 Magnesium 2.6 Total Bilirubin 0.3 Direct Bilirubin 0.1 AST 27 ALT 20 Alkaline Phosphatase 121 H Troponin I High Sens B-Natriuretic Peptide Total Protein 7.3 Albumin 3.9 TSH Urine Color Urine Appearance Urine pH Ur Specific [place] Urine Protein Urine Glucose (UA) Urine Ketones Urine Blood Urine Nitrite Ur Leukocyte Esterase Urine RBC Urine WBC Ur Squamous Epith Cells Urine Bacteria Hyaline Casts COVID-19 (JULIA) COVID-19 Clin Com 12/24/22 12/24/22 12/24/22 13:46 14:08 14:08 MCV MCH MCHC RDW Plt Count MPV Immature Gran % (Auto) Neut % (Auto) Lymph % (Auto) Maries % (Auto) Eos % (Auto) Baso % (Auto) Lymph # (Auto) Maries # (Auto) Eos # (Auto) Baso # (Auto) Abs Immat Gran (auto) Absolute Neuts (auto) Absolute Nucleated RBC Nucleated RBC % (auto) PT INR VBG pH 7.53 H VBG pCO2 34 VBG pO2 61 VBG HCO3 29 H VBG O2 Saturation 92.0 VBG Base Excess 6.8 Anion Gap Estim Creat Clear Calc Estimated GFR Random Glucose Lactic Acid Calcium Magnesium Total Bilirubin Direct Bilirubin AST ALT Alkaline Phosphatase Troponin I High Sens < 2.7 B-Natriuretic Peptide Total Protein Albumin TSH Urine Color Urine Appearance Urine pH Ur Specific [place] Urine Protein Urine Glucose (UA) Urine Ketones Urine Blood Urine Nitrite Ur Leukocyte Esterase Urine RBC Urine WBC Ur Squamous Epith Cells Urine Bacteria Hyaline Casts COVID-19 (JULIA) Negative COVID-19 Clin Com See Note 12/24/22 12/24/22 12/24/22 14:08 14:08 14:08 MCV MCH MCHC RDW Plt Count MPV Immature Gran % (Auto) Neut % (Auto) Lymph % (Auto) Maries % (Auto) Eos % (Auto) Baso % (Auto) Lymph # (Auto) Maries # (Auto) Eos # (Auto) Baso # (Auto) Abs Immat Gran (auto) Absolute Neuts (auto) Absolute Nucleated RBC Nucleated RBC % (auto) PT 20.1 H INR 1.7 H VBG pH VBG pCO2 VBG pO2 VBG HCO3 VBG O2 Saturation VBG Base Excess Anion Gap Estim Creat Clear Calc Estimated GFR Random Glucose Lactic Acid Calcium Magnesium Total Bilirubin Direct Bilirubin AST ALT Alkaline Phosphatase Troponin I High Sens B-Natriuretic Peptide 24 Total Protein Albumin TSH 1.12 Urine Color Urine Appearance Urine pH Ur Specific [place] Urine Protein Urine Glucose (UA) Urine Ketones Urine Blood Urine Nitrite Ur Leukocyte Esterase Urine RBC Urine WBC Ur Squamous Epith Cells Urine Bacteria Hyaline Casts COVID-19 (JULIA) COVID-19 Clin Com 12/24/22 14:51 MCV MCH MCHC RDW Plt Count MPV Immature Gran % (Auto) Neut % (Auto) Lymph % (Auto) Maries % (Auto) Eos % (Auto) Baso % (Auto) Lymph # (Auto) Maries # (Auto) Eos # (Auto) Baso # (Auto) Abs Immat Gran (auto) Absolute Neuts (auto) Absolute Nucleated RBC Nucleated RBC % (auto) PT INR VBG pH VBG pCO2 VBG pO2 VBG HCO3 VBG O2 Saturation VBG Base Excess Anion Gap Estim Creat Clear Calc Estimated GFR Random Glucose Lactic Acid Calcium Magnesium Total Bilirubin Direct Bilirubin AST ALT Alkaline Phosphatase Troponin I High Sens B-Natriuretic Peptide Total Protein Albumin TSH Urine Color Yellow Urine Appearance Clear Urine pH 5.5 Ur Specific [place] 1.025 Urine Protein 100 (2+) H Urine Glucose (UA) Negative Urine Ketones Trace Urine Blood Moderate (2+) H Urine Nitrite Negative Ur Leukocyte Esterase Moderate (2+) H Urine RBC >20 H Urine WBC >50 H Ur Squamous Epith Cells >20 Urine Bacteria Trace Hyaline Casts 3-5 COVID-19 (JULIA) COVID-19 Clin Com Imaging Radiologist's Impressions: Impressions Chest X-Ray 12/24/22 14:43 IMPRESSION: No pneumonia. Chest CTA 12/24/22 17:18 IMPRESSION: 1. No evidence of pulmonary emboli, but this study is extremely limited. 2. Compression fractures T6 and T8. VTE: Negative but limited Assessment and Plan (1) UTI (urinary tract infection): Status: Acute (2) Acute hypoxemic respiratory failure: Status: Acute (3) Acute metabolic encephalopathy: Status: Acute Plan 62-year-old female with history of bipolar disorder, delusional disorder, GERD, hyperlipidemia, hypertension, hypothyroidism, osteoporosis admitted for acute UTI and acute hypoxemic respiratory failure. #Acute UTI with acute metabolic encephalopathy -UA with 2+ leuks, 2+ blood, +urinary sediment, trace bacteria -Altered at baseline, but increased per SNF staff -Allergy to multiple medication. Continue levaquin IV (initiated 12/24) -No sepsis, follow CBC, UC, BC -Admit to M/S #Acute hypoxemic respiratory failure with respiratory alkalosis -CXR and CTA chest negative -Suspect BILL vs obesity hypoventilation syndrome -No known chronic lung disease -Continue supplemental O2 to maintain oximetry >92% #Polycythemia -suspect hemoconcentration -Given 2L IV NS -Repeat CBC now. Follow CBC #Acute hypernatremia- likely r/t free water deficit -got 2L IV NS bolus in ED -Repeat BMP now, follow #HLD -continue statin, gemfibrozil #Bipolar disorder -continue home meds #GERD -continue famotidine DVT prophylaxis- lovenox Full code Pt requires inpt stay at least 2 midnights for management of acute UTI with metabolic encephalopathy requiring IV abx and close monitoring of mental status. Time Spent With Patient Time: Total time managing care of this patient today ____ minutes. Quality Stroke Does the patient have a stroke diagnosis?: No VTE Prior VTE?: No VTE Risk Level:: Medical - moderate - high VTE Device Contraindication: Treatment Not Indicated VTE Drug Contraindication: N/A - Med Ordered
--- NOTE | 2022-12-24 20:41 | MHC.EDTECH ---
PATIENT DRANK 600 ML WATER WITH ASSISTANCE ,PT WAS INCONIENT OF URIENE ,CARE GIVEN ,BEDDING CHANGE ,WARM BLANKET GIVEN .
[2022-12-24 21:03] LABS: MANUAL DIFF FLAG NO
[2022-12-24 21:04] LABS: Basophils Percent Auto 0.4 % (0-2); Eosinophils Absolute Auto 0.1 X10*3/uL (0.0-0.4); Eosinophils Percent Auto 1.3 % (0-4); Hematocrit 47.4 % (37.0-47.0); Hemoglobin 14.1 g/dl (12.0-16.0); Imm Gran Abs Auto 0.04 X10*3/uL (0.00-0.03); Imm Gran Pct Auto 0.6 % (0.0-0.4); Lymphocytes Absolute Auto 2.5 X10*3/uL (1.2-4.9); Lymphocytes Percent Auto 35.3 % (20-40); Mean Corpuscular HGB Conc 29.7 g/dl (31.0-35.0); Mean Corpuscular Volume 97.3 fL (80.0-98.0); Mean Platelet Volume 9.9 fL (9.4-12.3); Monocytes Absolute Auto 0.9 X10*3/uL (0.1-1.2); Monocytes Percent Auto 12.3 % (2-11); Neutrophils Absolute Auto 3.5 x10*3/uL (2.0-8.3); Neutrophils Percent Auto 50.1 % (45-73); Platelet Count 207 X10*3/uL (160-400); Red Blood Count 4.87 X10*6/uL (4.20-5.50); Red Cell Distribution Width 14.1 % (11.0-16.0)
[2022-12-24 21:19] LABS: Anion Gap 14 (12-20); Blood Urea Nitrogen 28 mg/dL (9-16); Carbon Dioxide 20 mmol/L (22-29); Chloride 120 mmol/L (96-108); Creatinine Clr Calc Pharmacy 89.5; Estimated Glomerular Filt Rate > 60; Glucose Random 93 mg/dL (60-115); Potassium 3.7 mmol/L (3.3-5.1); Sodium 150 mmol/L (135-145)
[2022-12-24] MEDS: Enoxaparin Sodium 40 MG/0.4 ML SYRINGE SUBCUT (21:36)
[2022-12-24] MEDS: Atorvastatin Calcium 20 MG TABLET PO (21:38)
[2022-12-24] MEDS: Famotidine 20 MG TABLET PO (21:38)
[2022-12-24] MEDS: Divalproex Sodium ER 500 MG TAB.ER.24H 1500 MG PO (21:38)
[2022-12-24] MEDS: LORazepam 0.5 MG TABLET PO (21:44)
[2022-12-24] MEDS: gemfibroziL 600 MG TABLET PO (21:52)
[2022-12-24] MEDS: OLANZapine 7.5 MG TABLET 15 MG PO (21:52)
--- NOTE | 2022-12-24 22:24 | PC.NURSE ---
PT TOOK ALL BEDTIME MEDICATIONS WITH APPLESAUCE NO ISSUES
--- NOTE | 2022-12-24 23:27 | MHC.EDTECH ---
ROUNDING DONE ,VITALS SIGN TAKEN PT SLEEPING ,PT WAS REPOSITION AND IS DRY .
--- NOTE | 2022-12-24 23:45 | PC.NURSE ---
nurse to nurse report given to ED overflow RN
[2022-12-25] VITALS (24 sets, daily range): BP systolic 97–147; BP diastolic 60–84; PULSE 62–82; RESP 12–27; TEMP 35–36.5; O2SAT 90–97; BMI 33.7
[2022-12-25] MEDS: Dextrose 5 % 1,000 ML 100 ML IVCONT ×2 (00:09→10:20)
[2022-12-25 06:01] LABS: ABG Base Excess 7.9 mmol/L; ABG HCO3 35 mmol/L (22-26); ABG pCO2 61 mmHg (32-45); ABG pH 7.36 (7.35-7.45); ABG pO2 75 mmHg (83-108)
--- NOTE | 2022-12-25 06:08 | PC.NURSE ---
Patient arrived to overflow 2300 hour from ED. Initially A&Ox1 to self responding to her name. Patient noted to be more lethargic this morning with soft BP, spo2 92% on 4L oxymask, temporal temp 95.0 prompting rectal temp which showed 97.7, extremities cool to touch with +dp pulses. Covering provider Donal Watkins notified and to bedside. CXR, lactate, and ABG ordered and obtained. ABG resulted with co2 61 and o2 75, discussed with provider. Orders placed for bipap. Patient transported to ED 0600 hour due to escalation of care requirements.
[2022-12-25 06:24] LABS: Lactic Acid 0.9 mmol/L (0.5-2.0)
[2022-12-25 06:31] LABS: MANUAL DIFF FLAG NO
[2022-12-25 06:37] LABS: Basophils Percent Auto 0.5 % (0-2); Eosinophils Absolute Auto 0.1 X10*3/uL (0.0-0.4); Eosinophils Percent Auto 2.1 % (0-4); Hematocrit 43.2 % (37.0-47.0); Hemoglobin 13.2 g/dl (12.0-16.0); Imm Gran Abs Auto 0.04 X10*3/uL (0.00-0.03); Imm Gran Pct Auto 0.7 % (0.0-0.4); Lymphocytes Percent Auto 32.7 % (20-40); Mean Corpuscular HGB Conc 30.6 g/dl (31.0-35.0); Mean Corpuscular Hemoglobin 29.4 pg (27.0-33.0); Mean Corpuscular Volume 96.2 fL (80.0-98.0); Mean Platelet Volume 10.4 fL (9.4-12.3); Monocytes Absolute Auto 0.5 X10*3/uL (0.1-1.2); Monocytes Percent Auto 7.7 % (2-11); Neutrophils Absolute Auto 3.5 x10*3/uL (2.0-8.3); Neutrophils Percent Auto 56.3 % (45-73); Platelet Count 194 X10*3/uL (160-400); Red Blood Count 4.49 X10*6/uL (4.20-5.50); Red Cell Distribution Width 14.3 % (11.0-16.0); White Blood Count 6.1 X10*3/uL (4.8-10.8)
--- NOTE | 2022-12-25 06:38 | PC.NURSE ---
PT BROUGHT BACK TO ED ROOM 22 FROM OVERFLOW D/T DECLINE IN MENTAL STATUS, DIFFICULT TO AROUSE. ONLY AWOKE TO STERNAL RUB. PT PRESENTS WITH INCREASING LETHARGY. BROUGHT BACK TO ED AND PLACED ON BIPAP FOR CO2 OF 61. PT NOW ICU LEVEL PATIENT. 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 HEAD CT ORDERED AND DONE. WILL CTM
[2022-12-25 07:08] LABS: Anion Gap 10 (12-20); Blood Urea Nitrogen 25 mg/dL (9-16); Calcium 8.1 mg/dL (8.4-10.2); Carbon Dioxide 26 mmol/L (22-29); Chloride 114 mmol/L (96-108); Creatinine Clr Calc Pharmacy 96.6; Estimated Glomerular Filt Rate > 60; Glucose Random 117 mg/dL (60-115); Potassium 3.1 mmol/L (3.3-5.1); Sodium 147 mmol/L (135-145)
--- NOTE | 2022-12-25 08:00 | CA_ITS ---
Transthoracic Echocardiogram Patient (Last, First, Middle): Alex Wong, Gender: Female Date of : 1960 Age: 62 Procedure Date: 12/25/2022 Procedure Type: Transthoracic Echocardiogram Location: ICU Height: 165.1 cm Weight: 86.64 kg BSA: 1.94 m2 Heart Rate: bpm BP: 108 / 67 mmHg Director Advanced: Referring MD: Bo Cedillo MD Fashion Intern: Robert Enriquez MD Symptoms: hypoxia, ?CHF Study Quality: Adequate With Contrast ECG Rhythm: Sinus Conclusions: - 1. Normal LV systolic function with LVEF of 55-60% with pseudonormal filling pattern 2. Normal cardiac valvular Doppler 3. Normal measured RV systolic pressure 4. No gross pericardial effusion Findings Procedure Information Contrast agent, definity, is being given per protocol without apparent complications. Left Ventricle Normal left ventricular size, thickness, and systolic function. The visually estimated ejection fraction is between 55-60%. Spectral Doppler is indicative of a pseudonormal filling pattern. E/E prime ratio is between 8 and 15 consistent with indeterminate filling pressures. Right Ventricle Mildly increased right ventricular cavity size. There is normal right ventricular systolic function. Atria The left atrium is normal in size. Interatrial shunt cannot be excluded. The right atrium is normal in size. Aortic Valve The aortic valve structure and function is likely normal. There is no aortic valve stenosis. There is no aortic valve regurgitation. Mitral Valve Normal mitral valve structure and function. There is trace mitral valve regurgitation. There is no mitral valve stenosis. Pulmonic Valve The pulmonic valve was not well visualized. Tricuspid Valve Likely normal tricuspid valve structure and function. There is trace tricuspid valve regurgitation. The right ventricular systolic pressure is normal. The right ventricular systolic pressure is 22 mmHg. Normal right atrial pressure. There is no evidence of pulmonary hypertension. Great Vessels All visible segments of the aorta are normal in size. The pulmonary artery was not well visualized. Venous The inferior vena cava is normal in size and collapses greater than 50% with inspiration. Pericardium/Pleural There is no evidence of pericardial effusion. Prior Study Comparison No prior study available for comparison. Measurements 2D Linear Measurements IVSd: 1.36 0.6-0.9/0.6-1.0 cm LVIDd: 3.79 3.9-5.3/4.2-5.9 cm LVIDd Index: 1.95 2.4-3.2/2.2-3.1 cm/m2 LVIDs: 2.59 2.0-3.6 cm LVPWd: 1.31 0.7-1.1 cm Ao Root: 3.30 2.1-3.5 cm LA Diam: 3.50 2.7-3.8/3.0-4.0 cm LAIDs Index: 1.80 1.5-2.3 cm/m2 LV Mass: 223.75 67-162/88-224 g LV Mass Index: 115.34 43-95/49-115 g/m2 LVOT Diam: 2.20 3.0+(-)1.3 cm 2D Systolic Function EF 4C: 61.20 >55% EF 2C: 56.00 >55% EF BiP: 59.10 >55% Mitral Valve MV Pk E: 0.82 MV PK A: 0.81 MV Decel Time: 184.00 E/A: 1.00 E'Lateral: 8.27 E'Medial: 5.44 E/E' Med: 15.10 E/E' Lat: 10.00 PHT: 54.00 MVA PHT: 4.07 Decel [place]: 4.47 Aortic Valve AoV Pk Tristan: 1.18 AoV Mn Tristan: 0.68 AoV VTI: 0.27 AoV Pk Grad: 6.00 Aov Mn Grad: 2.00 CARINE Cont.VTI: 2.65 LVOT LVOT Pk Tristan: 0.89 LVOT Mn Tristan: 0.57 LVOT VTI: 0.19 LVOT Pk Grad: 3.00 LVOT Mn Grad: 2.00 LVOT Diam: 2.20 LVOT Area: 3.80 Diastolic Function MV Pk E: 0.82 MV Pk A: 0.81 E/A: 1.00 E'Medial: 5.44 E/E' Med: 15.10 E' Laterial: 8.27 E/E' Lat: 10.00 Right Ventricle TAPSE (mm): 18.00 TVS' Tristan: 9.00 Tricuspid Valve TR Pk Tristan: 2.19 TR Pk Grad: 19.00 RA Press: 3.00 RVSP: 22.00 Great Vessels Aorta Ao Root-2D: 3.30 2.0-3.7 cm Ao Asc: 3.20 2.1-3.4 cm Pulmonary Valve PV Pk Tristan: 0.77 Peak PV Grad: 2.00 Updated in Other Vendor System with Status of Final Robert Enriquez MD electronically signed on 12/25/2022 3:43:09 PM with status of Final
[2022-12-25 10:26] LABS: ABG Refer to POC result
--- NOTE | 2022-12-25 11:13 | PC.NURSE ---
At this time pt maintaining her O2 sat at 93% on nasal cannula
--- NOTE | 2022-12-25 14:33 | PC.RT ---
Rt attempt ABG x 2. Pt noted uncooperative. RN aware.
--- NOTE | 2022-12-25 15:33 | P.PNCC_ITS ---
Subjective Subjective Date of Service: 12/25/22 Interval History: 62-year-old lady with underlying bipolar and delusional disorders, hypertension, hypothyroidism, obesity, resident of [place] care admitted on 12/24/2022 evaluation of alteration of mental status and hypoxia. Patient was d eemed to have pneumonia and started on treatment with appropriate antibiotic coverage. Overnight patient with increased confusion with mild hypercarbia placed on BiPAP and transferred to intensive care unit. In the intensive care unit patient titrated of BiPAP to room air. Critical Care Time (minutes): 45 Physical Exam Vital Signs: Vital Signs: Last Vital Signs Temp 96.9 F 12/25/22 12:15 Pulse 72 12/25/22 15:00 Resp 18 12/25/22 15:00 BP 114/75 12/25/22 15:00 Pulse Ox 96 12/25/22 15:00 O2 Del Method Room Air 12/25/22 15:00 O2 Flow Rate 1 12/25/22 11:08 Oxygen Flow Rate 4 12/25/22 00:27 BMI result Body Mass Index 33.7 Const: General: no acute distress and lethargic ( arousable and follows commands, intermittently agitated) Nutritional Appearance: obese Orientation/consciousness: lethargic ( arousable and follows commands, intermittently agitated) Eyes: Sclerae: sclerae normal EOM: EOMs intact bilaterally Neck: Neck: Yes no lymphadenopathy, Yes trachea midline and Yes supple Resp: Effort & Inspection: normal respiratory effort and no respiratory distress Auscultation: clear to auscultation bilaterally Cardio: Rate: regular rate Rhythm: regular rhythm Heart sounds: no gallops, no murmurs and no rubs GI: Palpation (GI): Soft to palpation and Other GI palpation findings present ( Nontender) Auscultation: normal bowel sounds Extrem: General: No clubbing, No cyanosis and Yes edema ( trace bilateral) Objective Data Labs 12/25/22 06:01 12/25/22 06:01 Labs: Laboratory Results - last 24 hr 12/24/22 12/24/22 12/25/22 20:59 20:59 05:52 WBC 7.0 RBC 4.87 Hgb 14.1 Hct 47.4 H MCV 97.3 MCH 29.0 MCHC 29.7 L RDW 14.1 Plt Count 207 D MPV 9.9 Immature Gran % (Auto) 0.6 H Neut % (Auto) 50.1 Lymph % (Auto) 35.3 [place] % (Auto) 12.3 H Eos % (Auto) 1.3 Baso % (Auto) 0.4 Lymph # (Auto) 2.5 [place] # (Auto) 0.9 Eos # (Auto) 0.1 Baso # (Auto) 0.0 Abs Immat Gran (auto) 0.04 H Absolute Neuts (auto) 3.5 Absolute Nucleated RBC 0.000 Nucleated RBC % (auto) 0.0 O2 Saturation 94.0 ABG pH at Pt Temp 7.36 ABG pCO2 at Pt Temp 61 H* ABG pO2 at Pt Temp 75 L ABG HCO3 35 H ABG Base Excess (Actual) 7.9 Sodium 150 H Potassium 3.7 Chloride 120 H Carbon Dioxide 20 L Anion Gap 14 BUN 28 H Creatinine 0.69 Estim Creat Clear Calc 89.5 Estimated GFR > 60 Random Glucose 93 Lactic Acid Calcium 8.0 L D 12/25/22 12/25/22 12/25/22 06:01 06:01 06:01 WBC 6.1 RBC 4.49 Hgb 13.2 Hct 43.2 MCV 96.2 MCH 29.4 MCHC 30.6 L RDW 14.3 Plt Count 194 MPV 10.4 Immature Gran % (Auto) 0.7 H Neut % (Auto) 56.3 Lymph % (Auto) 32.7 [place] % (Auto) 7.7 Eos % (Auto) 2.1 Baso % (Auto) 0.5 Lymph # (Auto) 2.0 [place] # (Auto) 0.5 Eos # (Auto) 0.1 Baso # (Auto) 0.0 Abs Immat Gran (auto) 0.04 H Absolute Neuts (auto) 3.5 Absolute Nucleated RBC 0.000 Nucleated RBC % (auto) 0.0 O2 Saturation ABG pH at Pt Temp ABG pCO2 at Pt Temp ABG pO2 at Pt Temp ABG HCO3 ABG Base Excess (Actual) Sodium 147 H Potassium 3.1 L Chloride 114 H Carbon Dioxide 26 Anion Gap 10 L BUN 25 H Creatinine 0.64 Estim Creat Clear Calc 96.6 Estimated GFR > 60 Random Glucose 117 H Lactic Acid 0.9 Calcium 8.1 L Microbiology Microbiology Results: Microbiology 12/24/22 15:28 Urine clean catch - Urine hutchinson top Urine Culture - Final No growth. Progress Note: A&P Assessment and plan (1) Acute hypercapnic respiratory failure: Status: Acute (2) Bipolar disorder: Status: Acute (3) Delusional disorder: Status: Acute Plan Assessment: 62-year-old lady with underlying delusional and bipolar disorder admitted with alteration of mental status and respiratory failure briefly requiring BiPAP Plan: Neuro: alteration of mental status, appears to have been over-sedated, now improved to what appears to be baseline after holding sedating agents. Cardiac: Likely underlying diastolic dysfunction 2D echocardiogram is pending. Pulmonary: Initial hypoxia And hypercapnia may have been secondary to an aspiration event secondary to over-sedation. Titrated off BiPAP. Now maintained normal oximetry on room air. Likely underlying nocturnal hypoventilation. Will add acetazolamide Renal: No acute issues. Endo: No acute issues. GI: No acute issues. ID: No evidence of pneumonia at this time. Heme/Onc: No acute issues. Psych: No acute issues. Miscellaneous: No acute issues. Prophylaxis: Heparin Diet: pending swallow evaluation Critical care time spent: 45 Quality Stroke Does the patient have a stroke diagnosis?: No VTE Prior VTE?: No VTE Risk Level:: Medical - moderate - high VTE Device Contraindication: Treatment Not Indicated VTE Drug Contraindication: N/A - Med Ordered
[2022-12-25] MEDS: levoFLOXacin/D5W 500 MG/100 ML PIGGYBACK 100 MG IV (15:41)
[2022-12-25 15:48] LABS: VBG Base Excess 11.2 mmol/L; VBG HCO3 39 mmol/L (22-26); VBG pCO2 68 mmHg; VBG pH 7.36 (7.32-7.43); VBG pO2 31 mmHg
[2022-12-25] MEDS: Enoxaparin Sodium 40 MG/0.4 ML SYRINGE SUBCUT (20:45)
[2022-12-25] MEDS: acetaZOLAMIDE sodium 500 MG VIAL 250 MG IVPUSH (20:54)
[2022-12-25 23:39] LABS: Venous Blood Gas Refer to POC result
[2022-12-26] VITALS (9 sets, daily range): BP systolic 116–125; BP diastolic 57–80; PULSE 62–75; RESP 16–28; TEMP 36–36.6; O2SAT 90–97; BMI 32.8
--- NOTE | 2022-12-26 05:46 | PC.NURSE ---
Pt was transferred from ICU, no tele order noted, MD notified and asked if Pt should be on tele. MD placed tele order and ordered ABGs as well. Respiratory up to draw but Pt refused ABGs and MD ordered VBG instead.
[2022-12-26 06:37] LABS: Venous Blood Gas Refer to POC result
[2022-12-26 06:40] LABS: VBG Base Excess 3.7 mmol/L; VBG HCO3 27 mmol/L (22-26); VBG pCO2 39 mmHg; VBG pH 7.45 (7.32-7.43); VBG pO2 87 mmHg
[2022-12-26 06:44] LABS: Basophils Percent Auto 0.6 % (0-2); Eosinophils Absolute Auto 0.2 X10*3/uL (0.0-0.4); Eosinophils Percent Auto 3.4 % (0-4); Hematocrit 49.6 % (37.0-47.0); Hemoglobin 15.1 g/dl (12.0-16.0); Imm Gran Abs Auto 0.07 X10*3/uL (0.00-0.03); Imm Gran Pct Auto 1.3 % (0.0-0.4); Lymphocytes Absolute Auto 1.7 X10*3/uL (1.2-4.9); Lymphocytes Percent Auto 32.6 % (20-40); MANUAL DIFF FLAG SCAN; Mean Corpuscular HGB Conc 30.4 g/dl (31.0-35.0); Mean Corpuscular Volume 95.2 fL (80.0-98.0); Monocytes Absolute Auto 0.4 X10*3/uL (0.1-1.2); Monocytes Percent Auto 8.1 % (2-11); Neutrophils Absolute Auto 2.9 x10*3/uL (2.0-8.3); PLT CLUMP 1; Red Blood Count 5.21 X10*6/uL (4.20-5.50); Red Cell Distribution Width 13.8 % (11.0-16.0); SCAN SMEAR FLAG 1; White Blood Count 5.3 X10*3/uL (4.8-10.8)
[2022-12-26 07:10] LABS: Albumin Level 3.1 g/dL (3.5-5.0); Anion Gap 12 (12-20); Blood Urea Nitrogen 15 mg/dL (9-16); Calcium 8.8 mg/dL (8.4-10.2); Carbon Dioxide 23 mmol/L (22-29); Chloride 111 mmol/L (96-108); Creatinine Clr Calc Pharmacy 104.6; Estimated Glomerular Filt Rate > 60; Glucose Random 77 mg/dL (60-115); Phosphorus 2.6 mg/dL (2.7-4.5); Potassium 3.4 mmol/L (3.3-5.1); Sodium 143 mmol/L (135-145)
[2022-12-26 07:30] LABS: Platelet Count 151 X10*3/uL (160-400)
[2022-12-26 07:31] LABS: SLIDE REVIEW VERIFIED
--- NOTE | 2022-12-26 08:31 | MHC.CM.PN ---
Patient is a LTC Resident of [facility] and a [facility] bed hold; returning to said SNF is the plan and CM has initiated and will follow for dc planning.
[2022-12-26] MEDS: Artificial Tears Ophth Oint 3.5 GM TUBE 1 APPL EYE-BOTH (09:07)
[2022-12-26] MEDS: acetaZOLAMIDE sodium 500 MG VIAL 250 MG IVPUSH ×2 (09:08→20:12)
--- NOTE | 2022-12-26 12:02 | MHC.SL.SWA ---
Speech Pathologist Impression: Risk of Aspiration Due to: Dysphasia Diet Status: Liquid Consistency and Strategies for Safe Swallow: Liquid Intake Recommendation: Thin Liquid Intake Strategies: Solid Food Consistency: Dietary Recommendations: Chopped/Advanced (NDD3) Additional Modifications to Solid Foods: Patient will need 1-1 supervision during meals due to poor coordination/weakness/clumsiness noted during the evaluation. Patient also likely to be impulsive, tends to eat and drink at rapid rate on simple textures. Encourage individual small sips by straw. Oral Medication Intake: Whole with Puree Please contact the pharmacy regarding appropriate crushable or liquid drug formulations that are available whenever modified delivery is recommended. Compensatory Strategies and Precautions to be Taken for Safe Swallow: Sitting Upright (90 deg) Liquids from Straw Alternate Liquids/Solids Rate of Ingestion Change Supervision While Eating and Drinking for Safe Swallow: Total Supervision (1:1) Foods to Avoid: Difficult to chew solids Swallowing Recommended Treatments: Compens. Strategy Educat. Recommendation for Speech: Inpatient Speech Therapy Comment: Patient presents with a mild dysarthria due to edentulous state, mild difficulty with oral phase when managing more advanced textures, and impulsivity. Recommend patient START on a diet of CHOPPED/ADVANCED (NDD3) with thin liquids, pills whole with puree. Patient normally drinks with straw, which is o.k., but will need monitoring due to impulsivity/rapid intake. Patient also presents as needing periodic assistance/supervision during meals due to impulsivity and coordination issues (will likely spill food if left to be independent). [facility] RESENDIZ notified of recommendations by secure text, RN in person. Recommend [facility] follow up 1-2X for toleration. Frequency/Duration: Date Range for Service Req: Timeline to reassess: Sporting Goods Sales Manager Clinican/Clinical Fellow: No Supervisory Statement: I have reviewed and agree with the student/clinical fellow's documentation: N/A Speech Language Pathologist: Shara Westfall M.A., CCC-BRUSHER HAND
--- NOTE | 2022-12-26 12:51 | P.PNIM_ITS ---
Subjective Subjective Date of Service: 12/26/22 Interval History: seen and examined this morning follow up for respiratory failure awake, alert this morning denies sob, cough Review of Systems Review of Systems: Yes all other systems are reviewed and are negative Constitutional Constitutional: Denies chills and Denies fever(s) ENT Ears, Nose, Mouth, and Throat: Denies dizziness Cardiovascular Cardiovascular: Denies chest pain, Denies palpitations and Denies dyspnea Respiratory Respiratory: Denies cough and Denies dyspnea Gastrointestinal Gastrointestinal: Denies abdominal pain Neurologic Neurologic: Denies dizziness Endocrine Endocrine: Denies palpitations Physical Exam Vital Signs: Vital Signs: Last Vital Signs Temp 97.9 F 12/26/22 11:38 Pulse 75 12/26/22 11:38 Resp 16 12/26/22 11:38 BP 118/74 12/26/22 11:38 Pulse Ox 90 L 12/26/22 11:38 O2 Del Method Room Air 12/26/22 11:38 O2 Flow Rate 1 12/25/22 11:08 FiO2 21 12/26/22 07:15 Oxygen Flow Rate 4 12/25/22 00:27 BMI result Body Mass Index 32.8 Const: General: comfortable, no acute distress, alert and awake Nutritional Appearance: overweight Orientation/consciousness: patient oriented x3 Resp: Effort & Inspection: normal respiratory effort, able to speak in complete sentences, no respiratory distress and no use of accessory muscles Cardio: Rate: regular rate Heart sounds: S1 normal heart sound present and S2 normal heart sound present GI: Inspection: No distended Palpation (GI): Soft to palpation and nontender Neuro: General: patient oriented x3, moves all extremities and CN's II-XI intact bilaterally Extrem: General: Yes no pedal edema Objective Data Active Medications Acetaminophen (Acetaminophen Supp 650 Mg Supp.Rect) 650 mg TN Q6H PRN PRN Reason: Pain, Mild, fever Acetazolamide (Acetazolamide Sodium 500 Mg Vial) 250 mg IVPUSH BID FOR[facility]LY [facility], 1928[facility]1983 Stop: 12/28/22 09:01 Last Admin: 12/26/22 09:08 Dose: 250 mg Documented By: ELLA Atorvastatin Calcium (Atorvastatin Calcium 20 Mg Tablet) 20 mg PO BEDTIME FOR[facility]LY [facility], [facility]1983 Last Admin: 12/25/22 21:24 Dose: Not Given Documented By: SIS Non-Admin Reason: NPO Docusate Sodium (Docusate Sodium 100 Mg Capsule) 100 mg PO DAILY PRN PRN Reason: Constipation Enoxaparin Sodium (Enoxaparin Sodium 40 Mg/0.4 Ml Syringe) 40 mg SUBCUT Q24H FOR[facility], [facility]1983 Last Admin: 12/25/22 20:45 Dose: 40 mg Documented By: SIS Famotidine (Famotidine 20 Mg Tablet) 20 mg PO BID FOR[facility], [facility]1983 Last Admin: 12/26/22 08:54 Dose: Not Given Documented By: ELLA Non-Admin Reason: NPO Gemfibrozil (Gemfibrozil 600 Mg Tablet) 600 mg PO BID [facility], [facility]1983 Last Admin: 12/26/22 08:54 Dose: Not Given Documented By: ELLA Non-Admin Reason: NPO Levothyroxine Sodium (Levothyroxine Sodium 75 Mcg Tablet) 75 mcg PO DAILY@0600 [facility], [facility] Last Admin: 12/26/22 04:23 Dose: Not Given Documented By: SARWAT Non-Admin Reason: NPO Melatonin (Melatonin 3 Mg Tablet) 3 mg PO BEDTIME [facility] Last Admin: 12/25/22 21:26 Dose: Not Given Documented By: SIS Non-Admin Reason: NPO Multi-Ingred Cream/Lotion/Oil/Oint (Artificial Tears Ophth Oint 3.5 Gm Tube) 1 appl EYE-BOTH BID FORMERLY [facility], [facility]–1983; Protocol Last Admin: 12/26/22 09:07 Dose: 1 appl Documented By: ELLA Ondansetron HCl (Ondansetron Hcl 4 Mg/2 Ml Vial) 4 mg IVPUSH Q8H PRN PRN Reason: Nausea and Vomiting Pharmacy Consult (Consult Rx Perform Med Rec) 1 each MISCELLANE ONCE PRN PRN Reason: Consult order Labs 12/26/22 06:28 12/26/22 06:28 Labs: Laboratory Results - last 24 hr 12/25/22 12/26/22 12/26/22 15:40 06:28 06:28 MCV 95.2 MCH 29.0 MCHC 30.4 L RDW 13.8 Plt Count 151 L MPV Not Reportable Immature Gran % (Auto) 1.3 H Neut % (Auto) 54.0 Lymph % (Auto) 32.6 [place] % (Auto) 8.1 Eos % (Auto) 3.4 Baso % (Auto) 0.6 Lymph # (Auto) 1.7 [place] # (Auto) 0.4 Eos # (Auto) 0.2 Baso # (Auto) 0.0 Abs Immat Gran (auto) 0.07 H Absolute Neuts (auto) 2.9 Absolute Nucleated RBC 0.000 Nucleated RBC % (auto) 0.0 Smear Tech's Comments VERIFIED VBG pH 7.36 VBG pCO2 68 VBG pO2 31 VBG HCO3 39 H VBG O2 Saturation 45.0 VBG Base Excess 11.2 Anion Gap 12 Estim Creat Clear Calc 104.6 Estimated GFR > 60 Random Glucose 77 Calcium 8.8 D Phosphorus 2.6 L Magnesium 2.0 Albumin 3.1 L 12/26/22 06:31 MCV MCH MCHC RDW Plt Count MPV Immature Gran % (Auto) Neut % (Auto) Lymph % (Auto) [place] % (Auto) Eos % (Auto) Baso % (Auto) Lymph # (Auto) [place] # (Auto) Eos # (Auto) Baso # (Auto) Abs Immat Gran (auto) Absolute Neuts (auto) Absolute Nucleated RBC Nucleated RBC % (auto) Smear Tech's Comments VBG pH 7.45 H VBG pCO2 39 VBG pO2 87 VBG HCO3 27 H VBG O2 Saturation 99.0 VBG Base Excess 3.7 Anion Gap Estim Creat Clear Calc Estimated GFR Random Glucose Calcium Phosphorus Magnesium Albumin Microbiology Microbiology Results: Microbiology 12/24/22 14:08 Blood Culture - Preliminary Blood - Venous No growth after 24 hours. 12/24/22 13:44 Blood Culture - Preliminary Blood - Venous No growth after 24 hours. 12/24/22 15:28 Urine Culture - Final Urine clean catch - Urine hutchinson top No growth. Assessment and Plan (1) Acute hypercapnic respiratory failure: Status: Acute Plan This is a 62-year-old female with history of bipolar disorder, delusional disorder, GERD, hyperlipidemia, hypertension, hypothyroidism, osteoporosis who presented to the ED from [facility] where she resides on 12/24 for evaluation of altered mental status and fever initially thought to have UTI subsequently found to have increased CO2/respiratory failure requiring brief stay in ICU for bipap acute respiratory failure with hypercarbia and hypoxia s/p ICU/bipap thought to be related to over sedation from chronic psych meds with possible aspiration event causing fever and hypoxia has been weaned off of supplemental oxygen echo with preserved LVEF nocturnal hypoxia - will obtain overnight oximetery test fever possible aspiration event from sedation causing transient fever. no evidence of UTI or pneumonia. no recurrent fever seen by speech - rec NDD3 with thin liqs Bipolar disorder home meds stopped in ICU due to concern for over sedation on zyprexa, ativan, depakote, [place] psych consult pending for med adjustment recs UTI ruled out, urine culture negative Acute hypernatremia- likely r/t free water deficit resolved hypokalemia improved HLD continue statin, gemfibrozil hypothyroidism continue synthroid GERD continue famotidine DVT prophylaxis- lovenox Full code attending - dr. hairston dispo - [facility], possibly tomorrow. pending psych evaluation for medication adjustment Time Spent With Patient Time: Total time managing care of this patient today ____ minutes. Quality Stroke Does the patient have a stroke diagnosis?: No VTE Prior VTE?: No VTE Risk Level:: Medical - moderate - high VTE Device Contraindication: Treatment Not Indicated VTE Drug Contraindication: N/A - Med Ordered
--- NOTE | 2022-12-26 15:24 | P.EN_ITS ---
Event Note Date of Service: 12/26/22 Event Note: Case reviewed with Anu RESENDIZ. Pt resides in half-way care. Pt has a diagnosis of bipolar disorder, delusional disorder. Admitted with fever on 12/24 and MSE alteration. Pt was somnolent, UTI was essentially ruled out as well as other medical issues. When pt was given evening psychotropics, somnolence increased and pt required ICU admit with BIPAP. Team held these medications (Depakote 500 mg bid, 1500 mg HS; Olanzapine 5 mg a.m. 15 mg HS, Lorazepam 0.5mg bid). MSE has improved, sedation has decreased. Thrombocytopenia (plts 151), possible Depakote SE. Pt, per team knowledge has not had any recent medication adjustments, but has been reportedly off her baseline. It is thought fever may have been caused by aspiration, hypoxia. Pt will continue monitoring this evening. Psychotropic medications will decrease to Olanzapine 2.5 mg bid, Depakote 500 mg bid, and Lorazepam will remain on hold. Pt will be seen in consult on 12/27 to assess sedation/breakthrough agitation for further adjustments. Time Spent With Patient Time: Total time managing care of this patient today ____ minutes.
[2022-12-26] MEDS: Enoxaparin Sodium 40 MG/0.4 ML SYRINGE SUBCUT (20:12)
[2022-12-26] MEDS: gemfibroziL 600 MG TABLET PO (20:12)
[2022-12-26] MEDS: Divalproex Sodium ER 500 MG TAB.ER.24H PO (20:12)
[2022-12-26] MEDS: Famotidine 20 MG TABLET PO (20:12)
[2022-12-26] MEDS: Atorvastatin Calcium 20 MG TABLET PO (20:12)
[2022-12-26] MEDS: Melatonin 3 MG TABLET PO (20:12)
[2022-12-26] MEDS: OLANZapine 2.5 MG TABLET PO (20:12)
[2022-12-27 04:00] VITALS: BP 116/74; PULSE 73; RESP 17; TEMP 36.1; O2SAT 94
--- NOTE | 2022-12-27 06:46 | PC.RT ---
Pt refused ABG, Dr aware-will have VBG instead
[2022-12-27] MEDS: Levothyroxine Sodium 75 MCG TABLET PO (06:51)
[2022-12-27 07:42] VITALS: BP 144/70; PULSE 86; RESP 22; TEMP 36.1; O2SAT 96; BMI 31.7
[2022-12-27] MEDS: Divalproex Sodium ER 500 MG TAB.ER.24H PO (08:51)
[2022-12-27] MEDS: acetaZOLAMIDE sodium 500 MG VIAL 250 MG IVPUSH (08:51)
[2022-12-27] MEDS: Famotidine 20 MG TABLET PO (08:51)
[2022-12-27] MEDS: gemfibroziL 600 MG TABLET PO (08:51)
[2022-12-27] MEDS: OLANZapine 2.5 MG TABLET PO (08:51)
[2022-12-27] MEDS: Artificial Tears Ophth Oint 3.5 GM TUBE 1 APPL EYE-BOTH (08:55)
--- NOTE | 2022-12-27 10:56 | PM.PSYCN ---
History of Present Illness Date of Service: 12/27/22 Chief Complaint: UTI, metabolic encephalopathy Reason for Consult: Oversedation, possibly caused by dosages of Olanzapine, Valproate, Lorazepam Requesting physician: Anu Gimenez Sources of Information: patient interviewed and chart reviewed Additional Sources of Information: Pt's primary RN 12/27/22 who reports no breakthrough agitation noted since medicine was decreased. Last evening pt reportedly had an increase in request for sandwiches. Pt reportedly slept adequately She did refuse some diagnostics this a.m. HPI Narrative: 62 yo female, assisted care resident, history of bipolar disorder, delusional disorder, admitted 12/24 with fever and question of UTI, encephalopathy, MSE alterations and increase in sedation/somulence. Diagnostics per team have been negative thus far, however, team had held doses of Lorazeapm, Valproate, Olanzapine with improvement in mental status. Care review with team 12/26 and Olanzapine 5 mg a.m. 15 mg p.m was decreased to 2.5 mg bid; Valproate 500 mg bid and 1500 mg HS was decreased to 500 mg bid and Lorazepam was held. This morning, team report no concerns about sedation, breakthrough agitation, monica, psychosis. Met with pt who was sleeping. She awakens easily and talked of being on these medications for an extended period of time and reports she continues to feel sedate. She acknowledges a history of monica and psychotic symptoms with denial of any active symptoms this a.m. She denies SI, HI and hopes to return to her facility soon, stating she is comfortable there, close to her brother who lives nearby although they rarely visit in person due to his mobility issues. Medical Evaluation Reviewed: Yes Review of Systems Constitutional: Reports daytime sleepiness Psychiatric: Reports homicidal ideation (denies) and Reports suicidal ideation (denies) FORMERLY [facility], 1928–1983 Medical History Bipolar disorder Chronic anemia Delusional disorder GERD (gastroesophageal reflux disease) Hyperlipidemia Hypertension Hypothyroidism Diagnostics Vital Signs (24Hr): Vital Signs - 24 hr 12/26/22 11:38 12/26/22 15:29 12/26/22 20:00 Temperature 97.9 F 97.2 F 96.8 F Pulse Rate 75 62 73 Respiratory Rate 16 17 20 Blood Pressure 118/74 124/66 118/63 Pulse Oximetry 90 L 95 93 Oxygen Delivery Method Room Air Room Air Room Air 12/26/22 23:44 12/27/22 04:00 12/27/22 04:00 Temperature 97.7 F 96.9 F 96.9 F Pulse Rate 69 73 73 Respiratory Rate 18 17 17 Blood Pressure 121/57 L 116/74 116/74 Pulse Oximetry 94 94 94 Oxygen Delivery Method Room Air Room Air Room Air 12/27/22 07:42 Temperature 97.0 F Pulse Rate 86 Respiratory Rate 22 H Blood Pressure 144/70 H Pulse Oximetry 96 Oxygen Delivery Method Room Air BMI result Body Mass Index 31.7 Labs 12/26/22 06:28 12/26/22 06:28 Labs: Laboratory Results - last 48 hr 12/25/22 12/26/22 12/26/22 15:40 06:28 06:28 WBC 5.3 RBC 5.21 Hgb 15.1 Hct 49.6 H MCV 95.2 MCH 29.0 MCHC 30.4 L RDW 13.8 Plt Count 151 L MPV Not Reportable Immature Gran % (Auto) 1.3 H Neut % (Auto) 54.0 Lymph % (Auto) 32.6 Upson % (Auto) 8.1 Eos % (Auto) 3.4 Baso % (Auto) 0.6 Lymph # (Auto) 1.7 Upson # (Auto) 0.4 Eos # (Auto) 0.2 Baso # (Auto) 0.0 Abs Immat Gran (auto) 0.07 H Absolute Neuts (auto) 2.9 Absolute Nucleated RBC 0.000 Nucleated RBC % (auto) 0.0 Smear Tech's Comments VERIFIED VBG pH 7.36 VBG pCO2 68 VBG pO2 31 VBG HCO3 39 H VBG O2 Saturation 45.0 VBG Base Excess 11.2 Sodium 143 Potassium 3.4 Chloride 111 H Carbon Dioxide 23 Anion Gap 12 BUN 15 Creatinine 0.60 Estim Creat Clear Calc 104.6 Estimated GFR > 60 Random Glucose 77 Calcium 8.8 D Phosphorus 2.6 L Magnesium 2.0 Albumin 3.1 L 12/26/22 06:31 WBC RBC Hgb Hct MCV MCH MCHC RDW Plt Count MPV Immature Gran % (Auto) Neut % (Auto) Lymph % (Auto) Upson % (Auto) Eos % (Auto) Baso % (Auto) Lymph # (Auto) Upson # (Auto) Eos # (Auto) Baso # (Auto) Abs Immat Gran (auto) Absolute Neuts (auto) Absolute Nucleated RBC Nucleated RBC % (auto) Smear Tech's Comments VBG pH 7.45 H VBG pCO2 39 VBG pO2 87 VBG HCO3 27 H VBG O2 Saturation 99.0 VBG Base Excess 3.7 Sodium Potassium Chloride Carbon Dioxide Anion Gap BUN Creatinine Estim Creat Clear Calc Estimated GFR Random Glucose Calcium Phosphorus Magnesium Albumin Imaging Radiology Impressions: ITS Impressions Chest X-Ray 12/24/22 14:43 IMPRESSION: No pneumonia. Chest CTA 12/24/22 17:18 IMPRESSION: 1. No evidence of pulmonary emboli, but this study is extremely limited. 2. Compression fractures T6 and T8. VTE: Negative but limited Chest X-Ray 12/25/22 05:55 IMPRESSION: * Stable diffuse bronchial wall thickening. * No discrete consolidation. Head CT 12/25/22 06:35 IMPRESSION: No acute intracranial pathology. Mental Status Exam Mental Status Exam Patient Appearance: Fatigued Patient Orientation: Person, Place and Situation Level of Consciousness: Awake, Appropriate and Alert Patient Behavior: Appropriate, Talkative, Cooperative and Good Eye Contact Mood Description: Calm Affect Description: Calm Patient Cognition Impaired: Yes Ability to Follow Directions: Fair Speech Pattern: Spontaneous Speech Memory Description: Remote Impaired Hallucinations: None Delusions: Not Present Thought Process: Slowed Thinking Thought Content: positive for Ethel, positive for Suicidal Ideation (denies) and positive for Homicidal Ideation (denies) Depressive Symptoms: Sleeping More Than Usual, Increased Fatigue and Thoughts of /Suicide (denies) Judgement: Poor Medications Medications Current Medications Acetaminophen (Acetaminophen Supp 650 Mg Supp.Rect) 650 mg VA Q6H PRN PRN Reason: Pain, Mild, fever Acetazolamide (Acetazolamide Sodium 500 Mg Vial) 250 mg IVPUSH BID [facility] Stop: 12/28/22 09:01 Last Admin: 12/27/22 08:51 Dose: 250 mg Atorvastatin Calcium (Atorvastatin Calcium 20 Mg Tablet) 20 mg PO BEDTIME [facility] Last Admin: 12/26/22 20:12 Dose: 20 mg Divalproex Sodium (Divalproex Sodium Er 500 Mg Tab.Er.24h) 500 mg PO BID [facility] Last Admin: 12/27/22 08:51 Dose: 500 mg Docusate Sodium (Docusate Sodium 100 Mg Capsule) 100 mg PO DAILY PRN PRN Reason: Constipation Enoxaparin Sodium (Enoxaparin Sodium 40 Mg/0.4 Ml Syringe) 40 mg SUBCUT Q24H [facility] Last Admin: 12/26/22 20:12 Dose: 40 mg Famotidine (Famotidine 20 Mg Tablet) 20 mg PO BID [facility] Last Admin: 12/27/22 08:51 Dose: 20 mg Gemfibrozil (Gemfibrozil 600 Mg Tablet) 600 mg PO BID [facility] Last Admin: 12/27/22 08:51 Dose: 600 mg Levothyroxine Sodium (Levothyroxine Sodium 75 Mcg Tablet) 75 mcg PO DAILY@0600 [facility] Last Admin: 12/27/22 06:51 Dose: 75 mcg Melatonin (Melatonin 3 Mg Tablet) 3 mg PO BEDTIME [facility] Last Admin: 12/26/22 20:12 Dose: 3 mg Multi-Ingred Cream/Lotion/Oil/Oint (Artificial Tears Ophth Oint 3.5 Gm Tube) 1 appl EYE-BOTH BID [facility]; Protocol Last Admin: 12/27/22 08:55 Dose: 1 appl Olanzapine (Olanzapine 2.5 Mg Tablet) 2.5 mg PO BID [facility] Last Admin: 12/27/22 08:51 Dose: 2.5 mg Ondansetron HCl (Ondansetron Hcl 4 Mg/2 Ml Vial) 4 mg IVPUSH Q8H PRN PRN Reason: Nausea and Vomiting Pharmacy Consult (Consult Rx Perform Med Rec) 1 each MISCELLANE ONCE PRN PRN Reason: Consult order Allergies Allergies Allergy/AdvReac Type Severity Reaction Status Date / Time Penicillins [PENICILLINS] Allergy Intermediate RASH/VOMITI Verified 12/24/22 13:32 NG clindamycin [CLINDAMYCIN] Allergy Mild VOMIT Verified 12/24/22 13:32 aspirin [ASPIRIN] Allergy Unknown SENSITIVE Verified 12/24/22 13:32 STOMACH ibuprofen [IBUPROFEN] Allergy Unknown VOMITING Verified 12/24/22 13:32 Sulfa (Sulfonamide Allergy Unknown UNKNOWN Verified 12/24/22 13:32 Antibiotics) [SULFA (SULFONAMIDE ANTIBIOTICS)] sulfamethoxazole Allergy Unknown NAUSEA & Unverified 03/30/20 17:29 [From BACTRIM] VOMITING trimethoprim [From BACTRIM] Allergy Unknown NAUSEA & Unverified 03/30/20 17:29 VOMITING carisoprodol [From SOMA] AdvReac Unknown NAUSEA & Unverified 03/30/20 17:29 VOMITING erythromycin base AdvReac Unknown NAUSEA & Unverified 03/30/20 17:29 [ERYTHROMYCIN BASE] VOMITING morphine [MORPHINE] AdvReac Unknown CHEST PAIN Unverified 03/30/20 17:29 AND CRAMPS From DEMEROL Allergy Unknown NAUSEA/VOMI Uncoded 03/30/20 17:29 TING From PERCOCET Allergy Unknown VOMITTING Uncoded 03/30/20 17:29 Assessment & Plan Assessment & Plan (1) Bipolar disorder: Status: Acute Code(s): F31.9 - Bipolar disorder, unspecified (2) Delusional disorder: Status: Acute Code(s): F22 - Delusional disorders Plan 62 yo female, history of bipolar disorder, delusional disorder, admitted with fever/ sedation due to probable overmedication on olanzapine, valproate, lorazepam. Pt validates hx of monica and psychosis. Continue current doses of Valproate, Olanzapine Continue hold of Lorazeapm Ammonia, Valproate level 12/28. Olanzapine 2.5 mg bid prn agitation,monica, psychosis Encourage close follow up with psychiatry on discharge to monitor for breakthrough monica/psychotic symptoms. We are available as needed for pt. Total time managing care of this patient today ____ minutes. Patient educated on: medication risk/benefits Informed Consent: understands and further education needed
[2022-12-27 12:00] VITALS: BP 127/69; PULSE 86; RESP 20; TEMP 36.2; O2SAT 93
--- NOTE | 2022-12-27 12:11 | MHC.SL.SWA ---
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 COVER ASSEMBLER to f/u 1x to ensure tolerance. Oral Medication Intake: Whole with Puree Please contact the pharmacy regarding appropriate crushable or liquid drug formulations that are available whenever modified delivery is recommended. Compensatory Strategies and Precautions to be Taken for Safe Swallow: Sitting Upright (90 deg) Small Bites and Sips Alternate Liquids/Solids Rate of Ingestion Change Avoid Specific Foods Supervision While Eating and Drinking for Safe Swallow: Total Supervision (1:1) Foods to Avoid: Difficult to chew solids Swallowing Recommended Treatments: Compens. Strategy Educat. Recommendation for Speech: 1 f/u Comment: Patient presents with a mild dysarthria due to edentulous state, mild difficulty with oral phase when managing more advanced textures, and impulsivity. Recommend patient START on a diet of CHOPPED/ADVANCED (NDD3) with thin liquids, pills whole with puree. Patient normally drinks with straw, which is o.k., but will need monitoring due to impulsivity/rapid intake. Patient also presents as needing periodic assistance/supervision during meals due to impulsivity and coordination issues (will likely spill food if left to be independent). Assistant Merchandiser Clinican/Clinical Fellow: No Supervisory Statement: I have reviewed and agree with the student/clinical fellow's documentation: N/A Speech Language Pathologist: Nicole Rich M.A., [facility]-COVER ASSEMBLER
--- NOTE | 2022-12-27 12:41 | PM.DS ---
DS: Providers Provider Date of Service: 12/27/22 Date of admission: 12/24/22 20:09 Date of discharge: 12/27/22 Primary care physician: UBALDO HATFIELD Consults: 12/26/22 11:17 Consult to Psychiatry Routine Consulting Provider: Psych Covering Reason for consultation: oversedation; ? med adjustment Has provider been notified: No Attending physician on discharge: Isaiah Diamond Discharging clinician: Anu Gimenez DS: Diagnosis Discharge Diagnosis (1) Bipolar disorder: Status: Acute (2) Delusional disorder: Status: Acute DS: Summary Hospital Course Hospital Course: From H&P on day of admision 62-year-old female with history of bipolar disorder, delusional disorder, GERD, hyperlipidemia, hypertension, hypothyroidism, osteoporosis presents to the ED via EMS from [facility] where she resides for evaluation of altered mental status.? The patient is altered at baseline but staff state that she was more somnolent and altered than usual.? On arrival, EMS noted patient to be hypoxic to 86% placed on 4 L supplemental O2 now maintaining oximetry 95% on 4 L via OxyMask.? Initially was febrile to 101.3 and has been intermittently tachypneic while sleeping.? There is no leukocytosis.? H/H is 16.7/50 4.2%.? Creatinine 0.85, BUN 35, sodium 152, potassium 3.6, chloride 115, CO2 24.? Lactic acid 1.5.? Troponin undetectable.? BNP 24.? TSH 1.12.? VBG 7.53, pCO2 34, bicarb 29.? Urinalysis with 2+ leukocytes, negative nitrites, 2+ blood, 2+ protein, positive urinary sediment, trace bacteria.? CXR negative for any pneumonia.? CTA of the chest is negative for PE though study is extremely limited and there were noted compression fractures at T6 and T8. In the ED, received 2L IV NS, 500mg IV levaquin, and 650mg acetaminophen. History obtained from pt chart and ED provided as patient was somnolent during exam. This is a 62-year-old female with history of bipolar disorder, delusional disorder, GERD, hyperlipidemia, hypertension, hypothyroidism, osteoporosis who presented to the ED from [facility] where she resides on 12/24 for evaluation of altered mental status and fever initially thought to have UTI subsequently found to have increased CO2/respiratory failure requiring brief stay in ICU for bipap acute respiratory failure with hypercarbia and hypoxia s/p ICU/bipap thought to be related to over sedation from chronic psych meds with possible aspiration event causing transient fever and hypoxia. has been weaned off of supplemental oxygen and saturating well on room air. echo obtained with preserved LVEF nocturnal hypoxia - underwent overnight oximetery test- declined am abg but still qualifies for 2L supplemental oxygen at night. recommend outpatient sleep study fever possible aspiration event? from sedation causing transient fever. no evidence of UTI or pneumonia. no recurrent fever.no respiratory symptoms. cxr negative. seen by speech - rec NDD3 with thin liquids Bipolar disorder home meds stopped in ICU due to concern for over sedation. on zyprexa, ativan, depakote, ramelton. was seen by psych for med adjustment. She was started on lower doses of medications including Zyprexa 2.5 mg b.i.d., Depakote 500 mg b.i.d.. Ativan continues to be on hold. Recommended check ammonia level and Depakote level in the morning. Recommend close follow-up with psychiatric prescriber to re-titrate medications as needed. UTI ruled out, urine culture negative Acute hypernatremia- likely r/t free water deficit - resolved Time Spent with Patient Time attestation: Total time managing care of this patient today ____ minutes. Discharge coordination time: Greater than 30 minutes Quality: Safe Use of Opioids Does Pt have an Active Cancer Diagnosis on the Problem List?: No Quality: Stroke Does the patient have a stroke diagnosis?: No Physical Exam Vital Signs: Vital Signs: Last Vital Signs Temp 97.0 F 12/27/22 07:42 Pulse 86 12/27/22 07:42 Resp 22 H 12/27/22 07:42 BP 144/70 H 12/27/22 07:42 Pulse Ox 96 12/27/22 07:42 O2 Del Method Room Air 12/27/22 07:42 O2 Flow Rate 1 12/25/22 11:08 FiO2 21 12/26/22 07:15 Oxygen Flow Rate 4 12/25/22 00:27 BMI result Body Mass Index 31.7 Const: General: comfortable, no acute distress, alert and awake Nutritional Appearance: overweight Orientation/consciousness: patient oriented x3 Resp: Effort & Inspection: normal respiratory effort, able to speak in complete sentences, no respiratory distress and no use of accessory muscles Cardio: Rate: regular rate Heart sounds: S1 normal heart sound present and S2 normal heart sound present GI: Inspection: No distended Palpation (GI): Soft to palpation and nontender Neuro: General: patient oriented x3, moves all extremities and CN's II-XI intact bilaterally Extrem: General: Yes no pedal edema DS: Data Data Completed and Pending Labs on day of discharge: Preliminary micro results at discharge 12/24/22 14:08 Blood Culture - Preliminary Blood - Venous No growth after 48 hours. 12/24/22 13:44 Blood Culture - Preliminary Blood - Venous No growth after 48 hours. Discharge Plan Discharge Anticipated Discharge Date/Time: 12/27/22 15:17 Patient Disposition: Xfer [facility] Discharge Diagnosis: acute respiratory failure with hypercapnia Referrals: [facility] [Outside] UBALDO HATFIELD [Primary Care Provider] - 1 Week Discharge Medications: New olanzapine 2.5 mg Tablet 2.5 mg PO BID 30 Days Qty: 60 0RF divalproex 500 mg Tablet Extended Release 24 Hr 500 mg PO BID 30 Days Qty: 60 0RF Continued simvastatin 40 mg Tablet 40 mg PO BEDTIME levothyroxine 75 mcg Tablet 75 mcg PO DAILY famotidine 20 mg Tablet 20 mg PO BID gemfibrozil 600 mg Tablet 600 mg PO BID ramelteon 8 mg Tablet 8 mg PO BEDTIME Artificial Eye Lubricant 83-15 % Ointment 1 appl OPHTHALMIC (EYE) BID cholecalciferol (vitamin D3) 1,250 mcg (50,000 unit) Tablet 1,250 mcg PO QMONTH Rx Instructions: each 5th day of the month potassium chloride 20 mEq Tablet Extended Release 20 meq PO DAILY Rx Instructions: give with food and 120 cc of fluid of choice Discontinued olanzapine 5 mg Tablet 5 mg PO DAILY lorazepam 0.5 mg Tablet 0.5 mg PO BID divalproex [Depakote ER] 500 mg Tablet Extended Release 24 Hr 1,500 mg PO BEDTIME divalproex [Depakote ER] 500 mg Tablet Extended Release 24 Hr 500 mg PO BID@0900,1400 olanzapine 15 mg Tablet 15 mg PO BEDTIME Discharge Orders: Discharge Order (Routine); Ordered 12/27/22 Ordered By: Anu Gimenez Activity on Discharge: As tolerated Stand Alone Forms: Patient Portal Discharge page Other Ambulatory Orders: Ammonia (Routine) Timeframe: 20221228 Facility: [facility] - Location: Laboratory Ordered By: Anu Gimenez Valproate (Routine) Timeframe: 20221228 Facility: [facility] - Location: Laboratory Ordered By: Anu Gimenez Care Plan Goals: see below Health Concerns: acute respiratory failure with hypercapnia UTI ruled out encephalopathy - resolved Plan of Treatment: encephalopathy likely related to over sedation from medications isolated fever - resolved mental health - doses of Zyprexa and Depakote were decreased due to over-sedation. take new doses as prescribed. Recommend to check ammonia level and Depakote level tomorrow and follow up closely with outpatient psychiatric provider for slow up titration of medications nocturnal hypoxia - qualifies for 2L nocturnal oxygen - recommend outpatient sleep study seen by speech - rec NDD3 diet with thin liquids Assessment: see discharge summary Discharge Date/Time: 12/27/22 17:45
[2022-12-27] MEDS: Acetaminophen 325 MG TABLET 650 MG PO (13:30)
[2022-12-27 15:22] VITALS: BP 132/86; PULSE 88; RESP 20; TEMP 36.3; O2SAT 95
--- NOTE | 2022-12-27 15:26 | MHC.CM.PN ---
PT CLEARED TO DC BACK TO [facility] WAITING FOR LIAISON TO RESPOND WITH INFORMATION ABOUT SNFS ABILITY TO ACCEPT PT WITH PRN [facility]
== END 2022-12-27 17:45 | DRG 133 ==
LOC: HO.ED 21:13 → HO.EDOVER 21:57 → HO.ICU 12-25 11:29 → HO.IMC 12-26 00:27
PROVIDERS: Internal Medicine; Internal Medicine Pulmonary Disease; Admitting Provider Physician Assistant; Emergency Provider Emergency Medicine; PCP Emergency Medicine; Visit Provider Physician Assistant Medical
DX: J96.01 Acute respiratory failure with hypoxia (principal); G92.8 Other toxic encephalopathy; E87.3 Alkalosis; E87.0 Hyperosmolality and hypernatremia; J96.02 Acute respiratory failure with hypercapnia; G47.33 Obstructive sleep apnea (adult) (pediatric); D75.1 Secondary polycythemia; Z68.32 Body mass index [BMI] 32.0-32.9, adult; E87.6 Hypokalemia; F31.9 Bipolar disorder, unspecified; E03.9 Hypothyroidism, unspecified; E66.9 Obesity, unspecified; E78.5 Hyperlipidemia, unspecified; F22 Delusional disorders; T50.915A Adverse effect of multiple unspecified drugs, medicaments and biological substances, initial encounter; Z20.822 Contact with and (suspected) exposure to COVID-19; Z88.0 Allergy status to penicillin; Z88.1 Allergy status to other antibiotic agents; Z88.2 Allergy status to sulfonamides; Z79.890 Hormone replacement therapy; Z79.899 Other long term (current) drug therapy
CPT/HCPCS: 36415; 70450; 71045; 71275; 80048; 80076; 81001; 81003; 82040; 82803; 83605; 83735; 83880; 84100; 84443; 84484; 85025; 85610; 87040; 87086; 87635; 92526; 92610; 93005; 93306; 94660; 99285; J1650; J1956; Q9967